=== PATIENT | female | born 1950 | race Caucasian/White ===

== ENCOUNTER 2017-11-26 11:55 | Inpatient (IN) ==
[2017-11-26] MEDS ORDERED: NS 1,000 ML IV ONE ×3 (12:09→20:18)
--- NOTE | 2017-11-26 12:11 | Emergency Department Report ---
General Adult HPI - General Chief complaint: Shortness of Breath/Dyspnea Stated complaint: SOA, dec O2 stat Time Seen by Provider: 11/26/17 12:09 Source: EMS Mode of arrival: EMS Limitations: altered mental status - History of Present Illness HPI narrative: She is brought in by EMS today from [facility] here in [place]. She was evaluated in ER overnight for low O2 and had negative workup. Was sent back to [place]. Today staff had noted the low O2 again and wanted to have her checked. Per EMS she also had a temp today but unsure how high. She is normally active but has been more subdued today. Does not wear home O2. Patient noted to be hypotensive on initial evaluation in ER. She is alert but does not talk or answer questions. She does follow commands. Onset (ago): hour(s) Severity: moderate Consistency: constant Exacerbating factors: none Associated symptoms: denies other symptoms Treatments prior to arrival: none - Related Data Home Medications Medication Instructions Recorded Confirmed Acetaminophen [Tylenol] 500 mg PO Q4H PRN 11/26/17 11/26/17 Alendronate [Fosamax] 70 mg PO Q7D 11/26/17 11/26/17 Amlodipine [Norvasc] 10 mg PO DAILY 11/26/17 11/26/17 Bisacodyl Supp [Dulcolax] 10 mg RECTALLY DAILY PRN 11/26/17 11/26/17 Calcium Carbonate [Calcium] 500 mg PO DAILY 11/26/17 11/26/17 ClonazePAM [Klonopin] 0.5 mg PO BID 11/26/17 11/26/17 Fleet Phospho-Soda Enema [Fleet 1 enema RECTALLY DAILY PRN 11/26/17 11/26/17 Enema] Haloperidol [Haldol] 5 mg PO Q4H PRN 11/26/17 11/26/17 Hydralazine [Apresoline] 12.5 mg PO TID 11/26/17 11/26/17 LORazepam [Ativan] 0.5 mg PO DAILY PRN 11/26/17 11/26/17 Lisinopril [Prinivil] 5 mg PO DAILY 11/26/17 11/26/17 Loratadine [Claritin] 10 mg PO DAILY PRN 11/26/17 11/26/17 Mag Hydrox/Aluminum Hyd/Simeth 30 ml PO Q4H PRN 11/26/17 11/26/17 [Antacid Suspension] Metoprolol Tartrate 50 mg PO BID 11/26/17 11/26/17 Milk of Magnesia [Mom] 30 ml PO DAILY PRN 11/26/17 11/26/17 Mirtazapine [Remeron] 15 mg PO HS 11/26/17 11/26/17 Multivitamin [One Daily] 1 each PO DAILY 11/26/17 11/26/17 Naproxen [Naproxen] 500 mg PO BID 11/26/17 11/26/17 Ondansetron [Zofran Odt] 4 mg PO Q8HR PRN 11/26/17 11/26/17 Phenytoin Cap [Dilantin 100 mg Cap] 100 mg PO TIDWM 11/26/17 11/26/17 Quetiapine [SEROquel] 200 mg PO TID 11/26/17 11/26/17 RisperiDONE LA [RisperDAL Consta] 50 mg IM Q2WKS 11/26/17 11/26/17 Sennosides [Senokot] 8.6 mg PO BID 11/26/17 11/26/17 Tramadol [Ultram] 50 mg PO TID 11/26/17 11/26/17 Allergies Allergy/AdvReac Type Severity Reaction Status Date / Time polystyrene sulfonate Allergy Unknown Verified 11/26/17 12:42 [From Kayexalate] tuberculin, purified protein Allergy Unknown Verified 11/26/17 12:42 deriva [From Tubersol] Review of Systems Limitations: ROS unobtainable due to patient's medical condition Constitutional: Reports: fever, weakness Physical Exam - Limitations Limitations: altered mental status - General General appearance: alert, in no apparent distress - Normal Exams: Neck:: Full range of motion, without adenopathy, JVD, bruits or thyromegaly Chest/Respirations:: Clear all lockwood, with good airflow, and symmetry bilaterally Cardiovascular:: Regular rate and rhythm, without murmur or gallop, Pulses 2+ all extremities, capillary refill, <2 seconds all extremities Abdomen:: Bowel sounds positive, soft, non-tender, non-distended, no hepatosplenomegaly, masses or bruits noted Lymphatic:: No lymphadenopathy, or lymphedema noted Integumentary:: No rashes, hives, or bruising noted Neurological:: Patient is alert Psychiatric:: Patient exhibits, appropriate attention, emotion and affect Course Vital Signs Temperature 100.5 F H 11/26/17 11:55 Pulse Rate 97 11/26/17 11:55 Respiratory Rate 18 11/26/17 11:55 Blood Pressure 86/54 11/26/17 11:55 Pulse Oximetry 90 11/26/17 11:55 Temperature 100.5 F H 11/26/17 11:55 Pulse Rate 97 11/26/17 11:55 Respiratory Rate 18 11/26/17 11:55 Blood Pressure 86/54 11/26/17 11:55 Pulse Oximetry 90 11/26/17 11:55 Medical Decision Making - MDM Narrative Medical decision making narrative: 1309- Chest xray does show bilateral lower lobe airspace consolidation. WBC is elevate. Lactate is normal however. B/P currently 78/51 with pulse of 91. IVF infusing with total bolus ordered for 30ml/kg dose of 1700ml. Did speak with Dr Nur regarding HPI, labs, xray, and vitals. Will accept for admission at this time. - Lab Data Lab results reviewed: Yes: I reviewed the patient's lab results. Result diagrams: 11/26/17 12:22 11/26/17 12:22 Lab Results 11/26/17 11/26/17 Range/Units 12:22 12:22 WBC 15.6 H (4.5-11.0) T/MM3 RBC 2.81 L (4.00-5.20) M/MM3 Hgb 9.1 L (12-16) GM/DL Hct 28.6 L (36-46) % MCV 101.8 H (80-100) UM3 MCH 32.4 (26-34) UUG MCHC 31.8 (31-37) GM/DL RDW Std Deviation 46.9 (36.9-50.2) FL Plt Count 228 (130-400) T/MM3 MPV 9.7 (9.4-12.4) UM3 Immature Gran % (Auto) Not performed Neut % (Auto) Not performed Lymph % (Auto) Not performed [place] % (Auto) Not performed Eos % (Auto) Not performed Baso % (Auto) Not performed Neut # (Auto) Not performed Lymph # (Auto) Not performed [place] # (Auto) Not performed Eos # (Auto) Not performed Baso # (Auto) Not performed Abs Immat Gran (auto) Not performed Neutrophils % (Manual) 88.0 H (33-66) % Band Neutrophils % 9.0 H (0-6) % Lymphocytes % (Manual) 2.0 L (23-45) % Monocytes % (Manual) 1.0 (0-9.0) % Neutrophils # (Manual) 13.7 H (1.8-7.7) T/MM3 Band Neutrophils # 1.4 T/MM3 Lymphocytes # (Manual) 0.3 L (1-4.8) T/MM3 Monocytes # (Manual) 0.2 (0-0.8) T/MM3 RBC Morph Comment Normal Turbidity < 20 (0-20) Sodium 142 (134-144) MEQ/L Potassium 5.3 H (3.6-5) MEQ/L Chloride 110 H (98-107) MEQ/L Carbon Dioxide 19 L (22-30) MEQ/L Anion Gap 13 (5-15) meq/L BUN 46.0 H (7-17) MG/DL Creatinine 3.5 H D (0.7-1.2) mg/dL GFR Calculation 13 BUN/Creatinine Ratio 13 (6-26) RATIO Glucose 92 (65-110) MG/DL Calculated Osmolality 285 H (261-280) MOSM/KG Calcium 9.8 (8.4-10.2) MG/DL Total Bilirubin 0.80 (0.20-1.30) MG/DL Icterus Index < 2 (0-7) AST 25 (14-36) U/L ALT 17 (1-35) U/L Alkaline Phosphatase 188 H (38-126) U/L Troponin I < 0.012 (0-0.12) ng/ml Total Protein 6.8 (6.3-8.2) g/dL Albumin 3.4 L (3.5-5.0) g/dL Globulin 3.4 (2.4-3.6) G/DL Albumin/Globulin Ratio 1.0 L (1.1-2.2) RATIO Plasma Lactate 1.0 (0.6-2.2) MMOL/L Specimen Hemolysis < 15 (0-25) - Radiology Data Radiology results reviewed: Yes: I reviewed the patient's radiology results. Date of Exam: 11/26/17 Ordering Provider: Arlene Patiño APRN Type of Exam(s): XR chest 1V Reason for Exam(s): fever, dyspnea Indication: fever, dyspnea PROCEDURE: XR chest 1V: Encounter: Initial Comparison: None Findings: Airspace consolidation in the lower lobes, right greater than left. No pneumothorax or significant pleural effusion. Heart size and mediastinal contours are within normal limits. Significant scoliotic curvature of the thoracolumbar spine. Impression: Lower lobe pneumonia or aspiration. . Critical Care Time Critical Care Time: Yes Total Critical Care Time: 30 Attestation: I have spent 30 minutes of time with this patient on coordination of care, monitoring labs and vital signs, and medications for life threatening illness. Disposition Clinical Impression: Pneumonia Qualifiers: Pneumonia type: due to unspecified organism Laterality: bilateral Lung location : lower lobe of lung Qualified Code(s): J18.1 - Lobar pneumonia, unspecified organism Hypotension Qualifiers: Hypotension type: other hypotension type Qualified Code(s): I95.89 - Other hypotension Disposition: 02 To [facility] [place] Care Condition: Stable Time of Disposition: 13:36 - Seen By: midlevel
[2017-11-26] MEDS ORDERED: SALINE FLUSH 10ml SYRINGE IVF PRN ×2 (12:17→13:05)
--- NOTE | 2017-11-26 12:50 | XRay Report ---
Indication: fever, dyspnea PROCEDURE: XR chest 1V: Encounter: Initial Comparison: None Findings: Airspace consolidation in the lower lobes, right greater than left. No pneumothorax or significant pleural effusion. Heart size and mediastinal contours are within normal limits. Significant scoliotic curvature of the thoracolumbar spine. Impression: Lower lobe pneumonia or aspiration. .
[2017-11-26] MEDS ORDERED: CEFEPIME 1 GM in NS 100 ML IV ONE (13:04)
[2017-11-26] MEDS ORDERED: LEVOFLOXACIN PB 750 MG/150 ML BAG IV ONE (13:05)
[2017-11-26] MEDS ORDERED: NS IV SCH (14:15)
[2017-11-26] MEDS ORDERED: NOREPINEPHRINE DRIP IV SCH (14:15)
[2017-11-26] MEDS: NOREPINEPHRINE DRIP IV SCH ×2 (14:30→22:29)
[2017-11-26] MEDS: NS IV SCH ×2 (14:30→22:29)
--- NOTE | 2017-11-26 15:03 | History & Physical Report ---
History of Present Illness Date: 11/26/17 Chief complaint: coughing, Hypotensive HPI: Hillary is a 67 yr old who resides at [facility] in [place]. She was seen early this morning in the ER during [facility] downtime and record is available at time of admission. It was reported at that time that andrew was hypotensive and hypoxic. ER physician reports room air sats were 93-94%, BP 130's systolic. She was evaluated and reported to be medically stable. She was discharged back yo [facility]. At 0530 outpatient labs done by PCP Dr Uri zepeda. At that time. White count was found to be elevated at 18.1, hemoglobin 8.8, neutrophils 86, with a percent bands. Potassium was found to be elevated, renal function also elevated. Given these findings. Patient was returned to the emergency room for another acute evaluation. Patient returns to the emergency room at approximately noon today. On arrival to [facility]. Patient was found to have a fever of 100.5, pulse rate 97, blood pressure low at 86/54. Patient was noted to be obtunded with altered mentation. Laboratory studies were repeated at this time. She was found to have continued leukocytosis with a white count of 15 him and I'm percent bands with 88% neutrophils. Chemistry panel was also repeated. A chest x-ray did reveal lower lobe pneumonia or aspiration. Patient was given cefepime, Levaquin IV. She was also given IV fluid bolus, 30 ML per kilo as per sepsis protocol. Despite fluid resuscitation. Patient continued to be hypotensive with systolic blood pressures in the 70s and 80s. At that time it was felt that patient required norepinephrine drip to maintain adequate blood pressure. Patient was seen while still in the emergency room for initial evaluation. She will briefly open her eyes however, is unresponsive and nonverbal. Was able to speak with patient's guardian, Jasmin Mcmullen. He does verify that patient is a full code. She is also able to verify patients baseline. She can normally ambulate with a walker. She does speak, however, is generally mumbled. She believes that she works for the [employer]. Outpatient laboratory study from 11/08/17 did reveal a right ear culture positive for Streptococcus pneumoniae. It is reported that patient was previously treated for this infection. Medical history, surgical history is very difficult to be obtained. Patient is unable to give any details. Nursing facility reports they have no records of past surgical history. Has never been hospitalized at [facility] previously. Review of Systems ROS unobtainable: due to mental status Past Medical History Medical History Updates: Organic brain syndrome. Schizoaffective disorder. Hypertension. Chronic kidney disease-baseline creatinine 2.0. Hx of hypercalcemia Surgical History: Unable to obtain Family History: Unable to Obtain - Social History Smoking status: Unknown if ever smoked Housing: [facility] ([facility] in [place], [place]) Social history: PCP Dr Grewal. Medications Home Medications Medication Instructions Recorded Confirmed Type Acetaminophen [Tylenol] 500 mg PO Q4H PRN 11/26/17 11/26/17 History Alendronate [Fosamax] 70 mg PO Q7D 11/26/17 11/26/17 History Amlodipine [Norvasc] 10 mg PO DAILY 11/26/17 11/26/17 History Bisacodyl Supp [Dulcolax] 10 mg RECTALLY DAILY PRN 11/26/17 11/26/17 History Calcium Carbonate [Calcium] 500 mg PO DAILY 11/26/17 11/26/17 History ClonazePAM [Klonopin] 0.5 mg PO BID 11/26/17 11/26/17 History Fleet Phospho-Soda Enema [Fleet 1 enema RECTALLY DAILY PRN 11/26/17 11/26/17 History Enema] Haloperidol [Haldol] 5 mg PO Q4H PRN 11/26/17 11/26/17 History Hydralazine [Apresoline] 12.5 mg PO TID 11/26/17 11/26/17 History LORazepam [Ativan] 0.5 mg PO DAILY PRN 11/26/17 11/26/17 History Lisinopril [Prinivil] 5 mg PO DAILY 11/26/17 11/26/17 History Loratadine [Claritin] 10 mg PO DAILY PRN 11/26/17 11/26/17 History Mag Hydrox/Aluminum Hyd/Simeth 30 ml PO Q4H PRN 11/26/17 11/26/17 History [Antacid Suspension] Metoprolol Tartrate 50 mg PO BID 11/26/17 11/26/17 History Milk of Magnesia [Mom] 30 ml PO DAILY PRN 11/26/17 11/26/17 History Mirtazapine [Remeron] 15 mg PO HS 11/26/17 11/26/17 History Multivitamin [One Daily] 1 each PO DAILY 11/26/17 11/26/17 History Naproxen [Naproxen] 500 mg PO BID 11/26/17 11/26/17 History Ondansetron [Zofran Odt] 4 mg PO Q8HR PRN 11/26/17 11/26/17 History Phenytoin Cap [Dilantin 100 mg Cap] 100 mg PO TIDWM 11/26/17 11/26/17 History Quetiapine [SEROquel] 200 mg PO TID 11/26/17 11/26/17 History RisperiDONE LA [RisperDAL Consta] 50 mg IM Q2WKS 11/26/17 11/26/17 History Sennosides [Senokot] 8.6 mg PO BID 11/26/17 11/26/17 History Tramadol [Ultram] 50 mg PO TID 11/26/17 11/26/17 History Allergies Allergy/AdvReac Type Severity Reaction Status Date / Time polystyrene sulfonate Allergy Unknown Verified 11/26/17 12:42 [From Kayexalate] tuberculin, purified protein Allergy Unknown Verified 11/26/17 12:42 deriva [From Tubersol] Exam Vital Signs: Temperature 100.5 F H 11/26/17 11:55 Pulse Rate 97 11/26/17 11:55 Respiratory Rate 18 11/26/17 11:55 Blood Pressure 86/54 11/26/17 11:55 Pulse Oximetry 90 11/26/17 11:55 - Constitutional Present: moderate distress, well nourished, well developed - Routine HEENT Exam Eye: Present: EOMI ENT: Present: mucous membranes moist, dentition normal - Routine Respiratory Exam Present: wheezes, crackles - Routine Cardiovascular Exam Present: RRR, S1, S2. Absent: murmur - Routine Abdominal Exam Present: soft, normoactive bowel sounds, non distended. Absent: tenderness - Routine Extremities Exam Present: no edema - Routine Back/Spine/Pelvis Exam Back/Spine: Present: full ROM - Routine Skin Exam Present: intact, dry, warm - Routine Neurological Exam Present: alert, CN II-XII intact, altered mental status - Routine Psychiatric Exam Present: unable to assess Results - Labs CBC & Chem 7: 11/26/17 12:22 11/26/17 12:22 Assessment and Plan (1) Septic shock Current visit: Yes Status: Acute Assessment and Plan: Impression Septic Shock- Leukocytosis, Fever, Hypotension despite IV fluid resuscitation. Currently requiring dopamine drip, MAP 61 Bilateral pneumonia Hypotension Acute respiratory failure with hypoxia- requiring 3 liters RUDOLPH- Grading Supervisor on admission 3.5, Baseline Grading Supervisor 2.0 (CKD) Hyperkalemia- POA Schizophrenia Organic brain syndrome Plan Patient is admitted as an inpatient under care of Dr. Nur to the ICU for septic shock secondary to bilateral pneumonia, leukocytosis. She was given IV fluid resuscitation. 30 mL/kilogram while in the emergency room. Unfortunately, she did continue to be hypotensive with a map less than 65. Patient was started on norepinephrine drip at 5mcg/min Continue normal saline at 250 ML per hour. Will need to monitor for evidence of fluid overload We will repeat venous lactate, and chemistry panel at 1630 as per sepsis protocol. Patient was given IV Levaquin and cefepime while in the emergency room. These medications will need to be renally dosed given acute renal injury. Will also add pharmacy consult for vancomycin for triple antibiotic coverage given severe sepsis. qSOFA score- 3/3 , revealing high risk of poor outcome secondary to sepsis Order placed for PICC line insertion for longer-term vascular access. Due to severity of illness. DuoNeb breathing treatments 4 times a day and Pulmicort twice a day. Continue with oxygen therapy to maintain adequate saturations. SCDs to bilateral lower extremity for DVT prophylaxis At admission oral home medications will be placed on hold given decreased level of alertness. Once mentation improves. Will likely need speech therapy consultation to evaluate safety of swallow. I did speak with patient's guardian, Jasmin Kemi. She does verify the patient's is a full code status. Will discuss further orders and plan of care with attending, Dr. Nur At time of discharge medical care will return to primary care provider, Uri DVT Prophylaxis: SCD's Resuscitation Status: Full Code - Time spent with patient Time with patient PN: 70 minutes - Physician Narrative Physician: Goldie Nur MD Narrative: Date: 11/26/17 Time: 1616 Pt critically ill. She was independently interviewed and examined by me. She is not communicating with me at all. She does mumble something but I cannot understand her. Unable to get a ROS from her. She cannot/will not tell me her medical history or surgical history. The DIRECTOR OF ENGINEERING did call various people involved in her life to get as much information about her as possible. I did exam her and do not see any surgical scars. Pt has a court appointed guardian, Jasmin Mcmullen. Pt is a full code. ROS not obtainable. PE: Temp 100.5, HR 96, RR 29, BP 77/40. Gen: alert and awake but non verbal Skin: warm and dry HEENT: NC/ AT PERRL, EOMI, Sclera, lids and conjunctiva wnl. Dry MM, OP clear. ? thrush on tongue Neck: supple. No JVD, Carotids 2+ without bruits. Lungs: coarse, right sided crackles and rhonchi, No wheezes CV: Regular. No murmur, rub or gallop Abd: soft, ND, +BS. MS: ZHONG, Good strength, No edema Neuro: No focal deficit noted. Psych: no able to assess, not aggitated, does not appear depressed. Impression/Plan 1. Septic Shock- Leukocytosis, Fever, Hypotension despite IV fluid resuscitation. -Currently requiring norepinephrine for BP support -Place PICC line 2. Bilateral pneumonia -On triple therapy for nosocomial pneumonia -Resp therapy 3. Hypotension -Due to #1 4. Acute respiratory failure with hypoxia -Due to #2 -requiring 3 liters -Resp therapy -Titrate oxygen as needed. -CPAP if needed 5. RUDOLPH on CKD - Grading Supervisor on admission 3.5, Baseline Grading Supervisor 2.0 -Repeat labs 6. Hyperkalemia -Likely due to sepsis, poor perfusion, dehydration 7. Schizophrenia 8. Organic brain syndrome 9. Prophylaxis -SCDs, PPI I have reviewed the pts notes, labs and imaging. Pt was discussed in detain with DIRECTOR OF ENGINEERING to develop an assessment and plan. Sepsis Assessment - Evaluation SIRS Criteria: pulse > 90 beats/minute, WBC > 12,000, RR > 20 Severe Sepsis: hypotension (SBP <90 or MAP <65 x2 readings), Creatinine >2.0 mg/ dL or 0.5 mg/dL above baseline Septic Shock: Map <65 after 30 mL/kg IVF bolus Hospital Course Summary Disclaimer: The visit summary below is not to be considered part of the above Progress Note. Hospital Course: Impression Septic Shock- Leukocytosis, Fever, Hypotension despite IV fluid resuscitation. Currently requiring dopamine drip, MAP 61 Bilateral pneumonia Hypotension Acute respiratory failure with hypoxia- requiring 3 liters RUDOLPH- Grading Supervisor on admission 3.5, Baseline Grading Supervisor 2.0 (CKD) Hyperkalemia- POA Schizophrenia Organic brain syndrome Plan Patient is admitted as an inpatient under care of Dr. Nur to the ICU for septic shock secondary to bilateral pneumonia, leukocytosis. She was given IV fluid resuscitation. 30 mL/kilogram while in the emergency room. Unfortunately, she did continue to be hypotensive with a map less than 65. Patient was started on norepinephrine drip at 5mcg/min Continue normal saline at 250 ML per hour. Will need to monitor for evidence of fluid overload We will repeat venous lactate, and chemistry panel at 1630 as per sepsis protocol. Patient was given IV Levaquin and cefepime while in the emergency room. These medications will need to be renally dosed given acute renal injury. Will also add pharmacy consult for vancomycin for triple antibiotic coverage given severe sepsis. qSOFA score- 3/3 , revealing high risk of poor outcome secondary to sepsis Order placed for PICC line insertion for longer-term vascular access. Due to severity of illness. DuoNeb breathing treatments 4 times a day and Pulmicort twice a day. Continue with oxygen therapy to maintain adequate saturations. SCDs to bilateral lower extremity for DVT prophylaxis At admission oral home medications will be placed on hold given decreased level of alertness. Once mentation improves. Will likely need speech therapy consultation to evaluate safety of swallow. I did speak with patient's guardian, Jasmin Mcmullen. She does verify the patient's is a full code status. Will discuss further orders and plan of care with attending, Dr. Nur At time of discharge medical care will return to primary care provider, Uri
[2017-11-26] MEDS ORDERED: VANCOMYCIN - PHARMACY CONSULT MC ONE (15:06)
[2017-11-26] MEDS: NS 1,000 ML IV SCH ×2 (15:17→21:27)
[2017-11-26 15:29] VITALS: BMI 23.5
--- NOTE | 2017-11-26 16:42 | XRay Report ---
Indication: PICC LINE PLACEMENT PROCEDURE: XR chest 1V: Encounter: Initial Comparison: November 26, 2017 at 12:30 Findings: Left PICC line in place with the tip projecting over the right atrium. Interval worsening in the dense consolidation in the right mid to lower lung field. No pneumothorax. Small left effusion. Heart size and mediastinal contours are stable. Impression: 1. New left PICC line tip projects over the right atrium. 2. Worsening airspace consolidation in the right lung. .
--- NOTE | 2017-11-26 16:44 | Pharmacy Consult-Antibiotics ---
Pharmacy Consult-Vancomycin - Laboratory Information WBC 15.6 T/MM3 (4.5-11.0) H 11/26/17 12:22 BUN 46.0 MG/DL (7-17) H 11/26/17 12:22 Creatinine 3.5 mg/dL (0.7-1.2) H D 11/26/17 12:22 - Consult Information Vancomycin protocol: 67 y.o. female admitted to CCU with hypoxia, hypotension, fever, and renal failure. Chest x-ray shows possible lower lobe pneumonia or aspiration. Cefepime , Levaquin and Vancomycin per pharmacy protocol was started for empiric coverage of sepsis. Vancomycin 750 mg IV x 1 dose then 11/27/17 @1600 start Vancomycin 750 mg IV Q48H. Due to renal failure, will obtain random Vancomycin level with am labs to be sure the vancomycin is being cleared. Pharmacy will monitor and adjust as needed. Thank you, Irene Holm [facility]
[2017-11-26] MEDS: ALBUTEROL/IPRATROPIUM 2.5mg-0.5mg/3ml NEB AEROSOL SCH ×2 (16:57→20:36)
[2017-11-26] MEDS: BUDESONIDE INH.SOLN 0.5mg/2ml NEB AEROSOL SCH (20:36)
[2017-11-26] MEDS ORDERED: NS 1,000 ML IV SCH (22:00)
[2017-11-27] MEDS: NS 1,000 ML IV SCH ×3 (00:37→07:00)
[2017-11-27] MEDS: NS IV SCH (03:30)
[2017-11-27] MEDS: NOREPINEPHRINE DRIP IV SCH (03:30)
[2017-11-27] MEDS: ALBUTEROL/IPRATROPIUM 2.5mg-0.5mg/3ml NEB AEROSOL SCH ×4 (07:36→20:05)
[2017-11-27] MEDS: BUDESONIDE INH.SOLN 0.5mg/2ml NEB AEROSOL SCH ×2 (07:36→20:05)
--- NOTE | 2017-11-27 08:46 | Pharmacy Consult-Antibiotics ---
Pharmacy Consult-Vancomycin - Laboratory Information WBC 15.2 T/MM3 (4.5-11.0) H 11/27/17 04:40 BUN 36.0 MG/DL (7-17) H 11/27/17 04:39 Creatinine 2.4 mg/dL (0.7-1.2) H D 11/27/17 04:39 Procalcitonin 4.19 NG/ML H* 11/27/17 04:40 VANCOMYCIN THERAPY: DAY 2 67 y.o. female admitted to CCU with hypoxia, hypotension, fever, and renal failure. Chest x-ray shows possible lower lobe pneumonia or aspiration. Cefepime, Levaquin and Vancomycin per pharmacy protocol was started for empiric coverage of sepsis. Impaired Renal Fx with yesterdays SCr = 3.5 Calculated CrCl = 13 Todays SCr = 2.4 Calculated CrCl = 19 Random Vancomycin Level was done at 0439 this am = 7.90 Will increase regimen to Vanco 1gm IV q36hrs, and start today at 1200 noon. Will watch renal fx closely, recheck PCT and adjust regimen as needed. Target vanco trough = 15-20 mcg/ml. Thank you
[2017-11-27] MEDS ORDERED: ONDANSETRON 4 MG/2 ML INJECTION IVP PRN (10:43)
[2017-11-27] MEDS ORDERED: FLEET PHOSPHO - SODA ENEMA 133ml PR PRN (11:31)
--- NOTE | 2017-11-27 11:43 | Progress Note ---
- Date 11/27/17 Subjective: F/U: Septic shock, pneumonia, Acute respiratory failure, RUDOLPH More awake and alert. Moving more. Attempting to communicate. BP showing improvement - weaned off Norepinephrine. Breathing shallow/rapid but unlabored. Saturations maintained on 8L. Creatine with decrease to 2.4. Objective Vital signs: Temperature 99.7 F 11/27/17 05:00 Pulse Rate 109 H 11/27/17 06:45 Respiratory Rate 44 H 11/27/17 07:36 Blood Pressure 136/61 11/27/17 06:45 Pulse Oximetry 95 11/27/17 07:36 Height/Weight/BMI: Height 1.57 m Weight 61.9 kg Body Mass Index 23.5 - Constitutional Present: mild distress, well nourished, well developed, average body habitus, other (Opens eyes, follows commands. Appears slightly restless. ) - Routine HEENT Exam Head: Present: normocephalic, atraumatic Eye: Present: EOMI, PERRL ENT: Present: mucous membranes dry (Thrush ) - Routine Respiratory Exam Present: decreased breath sounds, rhonchi - Routine Cardiovascular Exam Present: no murmur, tachycardia - Routine Abdominal Exam Present: soft, non distended, non tender. Absent: normoactive bowel sounds ( Decreased) - Routine Extremities Exam Present: no edema, pulses intact. Absent: cyanosis, clubbing Comments: SCD in place - Routine Skin Exam Present: dry, warm - Routine Neurological Exam Present: moving all extremities, vision grossly intact, hearing grossly intact - Routine Psychiatric Exam Present: cooperative. Absent: anxious, agitated Results - Labs CBC & Chem 7: 11/27/17 04:40 11/27/17 04:39 Assessment and Plan (1) Septic shock Current visit: Yes Status: Acute Assessment and Plan: Impression Septic Shock- Leukocytosis, Fever, Hypotension despite IV fluid resuscitation. 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 Casiano IVF to 1/2NS at 100cc/hr as serum sodium increased to 149. Monitor BP off norepinephrine - chronic antihypertensives on hold secondary to shock. Hold on oral intake until more awake and alert. Will need speech evaluation prior to initiation of oral intake. Continue DuoNeb breathing treatments 4 times a day and Pulmicort twice a day. Wean O2 as able, maintaining saturations above 90%. Recheck CMP, CBC, and magnesium along with procalcitonin in am due to septic shock. Case discussed with CCU nursing. Time spent with patient care greater than 25 minutes. DVT Prophylaxis: SCD's Resuscitation Status: Do Not Resuscitate - Time spent with patient Time with patient PN: 25 minutes - Physician Narrative Physician: Joesph Hayden MD Narrative: Date: 11/27/17 Time: 1140 Hospital Course Summary Disclaimer: The visit summary below is not to be considered part of the above Progress Note. Hospital Course: 11/26/17 Admit to CCU Patient is admitted as an inpatient under care of Dr. Nur to the ICU for septic shock secondary to bilateral pneumonia, leukocytosis. She was given IV fluid resuscitation. 30 mL/kilogram while in the emergency room. Unfortunately, she did continue to be hypotensive with a map less than 65. Patient was started on norepinephrine drip at 5mcg/min Continue normal saline at 250 ML per hour. Will need to monitor for evidence of fluid overload We will repeat venous lactate, and chemistry panel at 1630 as per sepsis protocol. Patient was given IV Levaquin and cefepime while in the emergency room. These medications will need to be renally dosed given acute renal injury. Will also add pharmacy consult for vancomycin for triple antibiotic coverage given severe sepsis. qSOFA score- 3/3 , revealing high risk of poor outcome secondary to sepsis Order placed for PICC line insertion for longer-term vascular access. Due to severity of illness. DuoNeb breathing treatments 4 times a day and Pulmicort twice a day. Continue with oxygen therapy to maintain adequate saturations. SCDs to bilateral lower extremity for DVT prophylaxis At admission oral home medications will be placed on hold given decreased level of alertness. Once mentation improves. Will likely need speech therapy consultation to evaluate safety of swallow. I did speak with patient's guardian, Jasmin Mcmullen. She does verify the patient's is a full code status. At time of discharge medical care will return to primary care provider, Ewgeo 11/27/17 More awake and alert. Moving more. Attempting to communicate. BP showing improvement - weaned off Norepinephrine. Breathing shallow/rapid but unlabored. Saturations maintained on 8L. Creatine with decrease to 2.4. Urine output increasing. Continue cefepime, levofloxacin, and vancomycin for antimicrobial coverage. Casiano IVF to 1/2NS at 100cc/hr as serum sodium increased to 149. Monitor BP off norepinephrine - chronic antihypertensives on hold secondary to shock. Hold on oral intake until more awake and alert. Will need speech evaluation prior to initiation of oral intake. Continue DuoNeb breathing treatments 4 times a day and Pulmicort twice a day. Wean O2 as able, maintaining saturations above 90%.
[2017-11-27] MEDS: ACETAMINOPHEN 650 MG SUPPOSITORY PR PRN ×2 (12:33→18:16)
[2017-11-27] MEDS: CEFEPIME 1 GM in NS 100 ML IV SCH (13:01)
[2017-11-27] MEDS: NYSTATIN 500,000 units/5 ml ORAL LIQUID PO SCH ×3 (13:52→23:13)
[2017-11-27] MEDS: 1/2 NS 1,000 ML IV SCH (16:13)
[2017-11-27] MEDS ORDERED: FALL RISK - PHARMACY CONSULT MC ONE (17:36)
[2017-11-28] MEDS: 1/2 NS 1,000 ML IV SCH (02:18)
[2017-11-28] MEDS: HALOPERIDOL 5 MG/ML INJECTION IVP PRN (03:31)
[2017-11-28] MEDS: ALBUTEROL/IPRATROPIUM 2.5mg-0.5mg/3ml NEB AEROSOL SCH ×4 (07:10→20:34)
[2017-11-28] MEDS: BUDESONIDE INH.SOLN 0.5mg/2ml NEB AEROSOL SCH ×2 (07:10→20:34)
[2017-11-28] MEDS: NYSTATIN 500,000 units/5 ml ORAL LIQUID PO SCH ×4 (09:25→21:35)
--- NOTE | 2017-11-28 10:03 | XRay Report ---
Indication: check picc placement PROCEDURE: XR chest post-procedure 1V: Encounter: Initial Comparison: November 26, 2017 Findings: Left PICC line in place with the tip projecting over the expected cavoatrial junction. Continued airspace disease in the right mid to lower lung field. No pneumothorax. Patient is rotated. Impression: Left PICC line tip projects over the expected cavoatrial junction. There is a preliminary report by virtual radi[employer]. .
--- NOTE | 2017-11-28 11:18 | Progress Note ---
- Date 11/28/17 Subjective: F/U: Septic shock, pneumonia, Acute respiratory failure, RUDOLPH Resting in bed. Opens eyes; feels thirsty-wants drink of water. Breathing shallow/rapid. Needing 7L to maintain saturations. Blood pressures in 150 to 160. WBC decreased to 12.4. Sodium increased to 149. Creatinine decreased 2.2. Objective Vital signs: Temperature 98.1 F 11/28/17 03:00 Pulse Rate 100 11/28/17 08:00 Respiratory Rate 40 H 11/28/17 07:11 Blood Pressure 163/83 H 11/28/17 06:00 Pulse Oximetry 91 11/28/17 07:11 Height/Weight/BMI: Height 1.57 m Weight 61.6 kg Body Mass Index 23.5 - Constitutional Present: moderate distress, well nourished, well developed, average body habitus - Routine HEENT Exam Head: Present: normocephalic, atraumatic Eye: Present: EOMI, PERRL ENT: Present: mucous membranes dry - Routine Respiratory Exam Present: decreased breath sounds, respiratory distress, wheezes (Faint/scattered ), diminished air movement - Routine Cardiovascular Exam Present: RRR, no murmur - Routine Abdominal Exam Present: soft, normoactive bowel sounds, non distended, non tender - Routine Extremities Exam Present: no edema, pulses intact. Absent: cyanosis, clubbing - Routine Musculoskeletal Exam Musculoskeletal: Present: no clubbing or cyanosis - Routine Skin Exam Present: dry, warm - Routine Neurological Exam Present: moving all extremities, vision grossly intact, hearing grossly intact - Routine Psychiatric Exam Absent: anxious, agitated Results - Labs CBC & Chem 7: 11/28/17 04:17 11/28/17 04:17 Assessment and Plan (1) Septic shock Current visit: Yes Status: Acute Assessment and Plan: Impression Septic Shock- Leukocytosis, Fever, Hypotension despite IV fluid resuscitation. 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 Casiano IVF to D5W at 50cc/hr as serum sodium still elevated at 149. BP elevated - will continue to hold chronic antihypertensives due to resolving shock. Hold on oral intake until more awake and alert. Speech consult to clear swallow prior to oral intake. Continue DuoNeb breathing treatments 4 times a day and Pulmicort twice a day. Wean O2 as able, maintaining saturations above 90%. Recheck BMP and CBC in am due to resolving septic shock. Recheck CXR in am to assess pneumonia. Will transfer to medical floor for continuation of care. Case discussed with CCU nursing. Time spent with patient care greater than 25 minutes. DVT Prophylaxis: SCD's Resuscitation Status: Do Not Resuscitate - Time spent with patient Time with patient PN: 25 minutes - Physician Narrative Physician: Joesph Hayden MD Narrative: Date: 11/28/17 Time: 1115 Hospital Course Summary Disclaimer: The visit summary below is not to be considered part of the above Progress Note. Hospital Course: 11/26/17 Admit to CCU Patient is admitted as an inpatient under care of Dr. Nur to the ICU for septic shock secondary to bilateral pneumonia, leukocytosis. She was given IV fluid resuscitation. 30 mL/kilogram while in the emergency room. Unfortunately, she did continue to be hypotensive with a map less than 65. Patient was started on norepinephrine drip at 5mcg/min. Continue normal saline at 250 ML per hour. Will need to monitor for evidence of fluid overload. We will repeat venous lactate, and chemistry panel at 1630 as per sepsis protocol. Patient was given IV Levaquin and cefepime while in the emergency room. These medications will need to be renally dosed given acute renal injury. Will also add pharmacy consult for vancomycin for triple antibiotic coverage given severe sepsis. qSOFA score- 3/3 , revealing high risk of poor outcome secondary to sepsis. Order placed for PICC line insertion for longer-term vascular access. Due to severity of illness. DuoNeb breathing treatments 4 times a day and Pulmicort twice a day. Continue with oxygen therapy to maintain adequate saturations. SCDs to bilateral lower extremity for DVT prophylaxis. At admission oral home medications will be placed on hold given decreased level of alertness. Once mentation improves. Will likely need speech therapy consultation to evaluate safety of swallow. I did speak with patient's guardian, Jasmin Mcmullen. She does verify the patient's is a full code status. At time of discharge medical care will return to primary care provider, Uri. 11/27/17 More awake and alert. Moving more. Attempting to communicate. BP showing improvement - weaned off Norepinephrine. Breathing shallow/rapid but unlabored. Saturations maintained on 8L. Creatine with decrease to 2.4. Urine output increasing. Continue cefepime, levofloxacin, and vancomycin for antimicrobial coverage. Casiano IVF to 1/2NS at 100cc/hr as serum sodium increased to 149. Monitor BP off norepinephrine - chronic antihypertensives on hold secondary to shock. Hold on oral intake until more awake and alert. Will need speech evaluation prior to initiation of oral intake. Continue DuoNeb breathing treatments 4 times a day and Pulmicort twice a day. Wean O2 as able, maintaining saturations above 90%. 11/28/17 Opens eyes; feels thirsty - wants drink of water. Breathing shallow/rapid. Needing 7L to maintain saturations. Blood pressures in 150 to 160. WBC decreased to 12.4. Sodium increased to 149. Creatinine decreased 2.2. Continue cefepime, levofloxacin, and vancomycin for antimicrobial coverage. Casiano IVF to D5W at 50cc/hr as serum sodium still elevated at 149. BP elevated - will continue to hold chronic antihypertensives due to resolving shock. Hold on oral intake until more awake and alert. Speech consult to clear swallow prior to oral intake. Continue DuoNeb breathing treatments 4 times a day and Pulmicort twice a day. Wean O2 as able, maintaining saturations above 90%. Will transfer to medical floor for continuation of care.
[2017-11-28] MEDS: D5W 1,000 ML IV SCH (12:53)
[2017-11-28] MEDS: CEFEPIME 1 GM in NS 100 ML IV SCH (12:53)
[2017-11-28] MEDS ORDERED: LEVOFLOXACIN PREMIX 250 MG/50 ML BAG IV SCH (13:00)
[2017-11-29] MEDS: HALOPERIDOL 5 MG/ML INJECTION IVP PRN (01:53)
[2017-11-29] MEDS: ACETAMINOPHEN 650 MG SUPPOSITORY PR PRN (03:18)
[2017-11-29] MEDS: SALINE FLUSH 10ml SYRINGE IV PRN (04:45)
[2017-11-29] MEDS: D5W 1,000 ML IV SCH ×3 (04:46→12:04)
[2017-11-29] MEDS: ALBUTEROL/IPRATROPIUM 2.5mg-0.5mg/3ml NEB AEROSOL SCH ×4 (08:25→21:07)
[2017-11-29] MEDS: BUDESONIDE INH.SOLN 0.5mg/2ml NEB AEROSOL SCH ×2 (08:25→21:07)
[2017-11-29] MEDS: 1/2 NS 1,000 ML IV SCH (10:10)
[2017-11-29] MEDS: NS 1,000 ML IV SCH (10:10)
[2017-11-29] MEDS ORDERED: HALOPERIDOL 5 MG TABLET PO PRN (10:43)
--- NOTE | 2017-11-29 10:52 | Pharmacy Consult-Antibiotics ---
Pharmacy Consult-Vancomycin - Laboratory Information WBC 10.8 T/MM3 (4.5-11.0) 11/29/17 04:04 BUN 37.0 MG/DL (7-17) H 11/29/17 04:04 Creatinine 2.1 mg/dL (0.7-1.2) H 11/29/17 08:41 Procalcitonin 2.57 NG/ML H* 11/29/17 08:41 - Consult Information VANCOMYCIN THERAPY: DAY 4 67 y.o. female admitted to CCU with hypoxia, hypotension, fever, and renal failure. Chest x-ray shows possible lower lobe pneumonia or aspiration. Cefepime, Levaquin and Vancomycin per pharmacy protocol was started for empiric coverage of sepsis. Impaired Renal Fx but improved with S Cr = 2.1 Calculated Cr Cl = 26 [place] [address] this am = 21.75 I increased the regimen to Vancomycin 1,250 mg IV q24hrs, and that will start @ 0001. The computer model show the Vancomycin trough would been around 13. I changed the dose and the frequency to obtain a trough of around 17.00. The renal clearance has improved. The pharmacy will watch renal fx closely, recheck PCT and adjust regimen as needed. Target vanco trough = 15-20 mcg/ml. Thank you
--- NOTE | 2017-11-29 11:05 | Progress Note ---
- Date 11/29/17 Subjective: F/U: Septic shock, pneumonia, Acute respiratory failure, RUDOLPH Sleeping in bed. Hard to rouse. BP in 160s. HR 95-110. Maintaining saturations on RA. Speech to work with patient today. Objective Vital signs: Temperature 97.5 F 11/29/17 07:34 Pulse Rate 101 H 11/29/17 08:00 Respiratory Rate 28 H 11/29/17 08:26 Blood Pressure 163/95 H 11/29/17 07:43 Pulse Oximetry 100 11/29/17 08:26 Height/Weight/BMI: Height 1.57 m Weight 60.4 kg Body Mass Index 23.5 - Constitutional Present: well nourished, well developed - Routine HEENT Exam Head: Present: normocephalic, atraumatic ENT: Present: mucous membranes dry - Routine Respiratory Exam Present: decreased breath sounds. Absent: respiratory distress - Routine Cardiovascular Exam Present: RRR, no murmur - Routine Abdominal Exam Present: soft, non distended, non tender - Routine Extremities Exam Present: no edema, pulses intact. 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 Increase IVF of D5W to 75cc/hr as serum sodium elevated at 154. BP elevated - will continue to hold chronic antihypertensives due to resolving shock. Speech consult to clear swallow and help improve oral intake. Will consult PT/OT to help improve functional status. Could restart Remeron, Dilantin, and Senna. Will hold Seroquel due to somnolence and lisinopril due to resolving RUDOLPH. Continue DuoNeb breathing treatments 4 times a day and Pulmicort twice a day. Monitor O2 levels off of oxygen. Recheck BMP and CBC in am due to resolving septic shock. Case discussed with CM. Time spent with patient care 25 minutes. DVT Prophylaxis: SCD's Resuscitation Status: Do Not Resuscitate - Time spent with patient Time with patient PN: 25 minutes - Physician Narrative Physician: Joesph Hayden MD Narrative: Date: 11/29/17 Time: 1101 Hospital Course Summary Disclaimer: The visit summary below is not to be considered part of the above Progress Note. Hospital Course: 11/26/17 Admit to CCU Patient is admitted as an inpatient under care of Dr. Nur to the ICU for septic shock secondary to bilateral pneumonia, leukocytosis. She was given IV fluid resuscitation. 30 mL/kilogram while in the emergency room. Unfortunately, she did continue to be hypotensive with a map less than 65. Patient was started on norepinephrine drip at 5mcg/min. Continue normal saline at 250 ML per hour. Will need to monitor for evidence of fluid overload. We will repeat venous lactate, and chemistry panel at 1630 as per sepsis protocol. Patient was given IV Levaquin and cefepime while in the emergency room. These medications will need to be renally dosed given acute renal injury. Will also add pharmacy consult for vancomycin for triple antibiotic coverage given severe sepsis. qSOFA score- 3/3 , revealing high risk of poor outcome secondary to sepsis. Order placed for PICC line insertion for longer-term vascular access. Due to severity of illness. DuoNeb breathing treatments 4 times a day and Pulmicort twice a day. Continue with oxygen therapy to maintain adequate saturations. SCDs to bilateral lower extremity for DVT prophylaxis. At admission oral home medications will be placed on hold given decreased level of alertness. Once mentation improves. Will likely need speech therapy consultation to evaluate safety of swallow. I did speak with patient's guardian, Jasmin Mcmullen. She does verify the patient's is a full code status. At time of discharge medical care will return to primary care provider, Uri. 11/27/17 More awake and alert. Moving more. Attempting to communicate. BP showing improvement - weaned off Norepinephrine. Breathing shallow/rapid but unlabored. Saturations maintained on 8L. Creatine with decrease to 2.4. Urine output increasing. Continue cefepime, levofloxacin, and vancomycin for antimicrobial coverage. Casiano IVF to 1/2NS at 100cc/hr as serum sodium increased to 149. Monitor BP off norepinephrine - chronic antihypertensives on hold secondary to shock. Hold on oral intake until more awake and alert. Will need speech evaluation prior to initiation of oral intake. Continue DuoNeb breathing treatments 4 times a day and Pulmicort twice a day. Wean O2 as able, maintaining saturations above 90%. 11/28/17 Opens eyes; feels thirsty - wants drink of water. Breathing shallow/rapid. Needing 7L to maintain saturations. Blood pressures in 150 to 160. WBC decreased to 12.4. Sodium increased to 149. Creatinine decreased 2.2. Continue cefepime, levofloxacin, and vancomycin for antimicrobial coverage. Change IVF to D5W at 50cc/hr as serum sodium still elevated at 149. BP elevated - will continue to hold chronic antihypertensives due to resolving shock. Hold on oral intake until more awake and alert. Speech consult to clear swallow prior to oral intake. Continue DuoNeb breathing treatments 4 times a day and Pulmicort twice a day. Wean O2 as able, maintaining saturations above 90%. Will transfer to medical floor for continuation of care. 11/29/17 With WBC improving can continue cefepime but can stop levofloxacin and vancomycin. Increase IVF of D5W to 75cc/hr as serum sodium elevated at 154. BP elevated - will continue to hold chronic antihypertensives due to resolving shock. Speech consult to clear swallow and help improve oral intake. Will consult PT/OT to help improve functional status. Could restart Remeron, Dilantin, and Senna. Will hold Seroquel due to somnolence and lisinopril due to resolving RUDOLPH.
[2017-11-29] MEDS: NYSTATIN 500,000 units/5 ml ORAL LIQUID PO SCH ×4 (11:26→20:05)
[2017-11-29] MEDS: CEFEPIME 1 GM in NS 100 ML IV SCH (12:01)
--- NOTE | 2017-11-29 12:03 | XRay Report ---
Indication: F/U: Infiltrate PROCEDURE: XR chest 1V: Encounter: Initial Comparison: 11/26/2017 Findings: Exam is slightly more expiratory than prior study. There is prominence of the interstitial markings primarily in the mid to lower lung lockwood which may be exacerbated by the expiratory technique. There is a left arm PICC line in place with its tip overlying the lower SVC, unchanged. There is prominence of the cardiac silhouette that is probably accentuated by the AP portable technique. No pneumothorax. Trachea is midline. No subdiaphragmatic free air. Impression: Mild diffuse interstitial edema and both lung lockwood versus prominent secondary to expiratory technique. No definite lobar consolidation or pleural effusion. .
[2017-11-29] MEDS: PHENYTOIN 100 MG CAPSULE PO SCH ×2 (16:24→17:23)
[2017-11-29] MEDS: SENNOSIDES 8.6 MG TABLET PO SCH (20:05)
[2017-11-29] MEDS: MIRTAZAPINE 15 MG TABLET PO SCH (20:05)
[2017-11-29] MEDS: ClonazePAM 0.5 MG TABLET PO SCH (20:05)
[2017-11-30] MEDS: SALINE FLUSH 10ml SYRINGE IV PRN ×3 (02:25→04:47)
[2017-11-30] MEDS: HALOPERIDOL 5 MG/ML INJECTION IVP PRN (04:22)
[2017-11-30] MEDS: D5W 1,000 ML IV SCH ×2 (04:47→20:07)
[2017-11-30] MEDS: ALBUTEROL/IPRATROPIUM 2.5mg-0.5mg/3ml NEB AEROSOL SCH ×4 (07:38→20:22)
[2017-11-30] MEDS: BUDESONIDE INH.SOLN 0.5mg/2ml NEB AEROSOL SCH ×2 (07:38→20:22)
[2017-11-30] MEDS: PHENYTOIN 100 MG CAPSULE PO SCH ×3 (08:28→17:55)
[2017-11-30] MEDS: ClonazePAM 0.5 MG TABLET PO SCH ×2 (08:28→21:43)
[2017-11-30] MEDS: SENNOSIDES 8.6 MG TABLET PO SCH ×2 (08:28→21:44)
[2017-11-30] MEDS: MULTI-VITAMIN + MINERAL TABLET PO SCH (08:28)
[2017-11-30] MEDS: NYSTATIN 500,000 units/5 ml ORAL LIQUID PO SCH ×4 (08:29→21:45)
--- NOTE | 2017-11-30 10:36 | Progress Note ---
- Date 11/30/17 Subjective: F/U: Septic shock, pneumonia, Acute respiratory failure, RUDOLPH Resting in bed. Will move head, but not verbal. Follows commands to squeeze my hands-strength in hands week. Maintaining saturations on RA. Speech recommending barium swallow. Objective Vital signs: Temperature 97.4 F 11/30/17 07:00 Pulse Rate 90 11/30/17 08:00 Respiratory Rate 25 H 11/30/17 07:38 Blood Pressure 172/93 H 11/30/17 07:00 Pulse Oximetry 91 11/30/17 07:38 Height/Weight/BMI: Height 1.57 m Weight 60.6 kg Body Mass Index 23.5 - Constitutional Present: well nourished, well developed, average body habitus, somnolent - Routine HEENT Exam Head: Present: normocephalic, atraumatic ENT: Present: mucous membranes dry - Routine Respiratory Exam Present: decreased breath sounds (Upper airway noises). Absent: respiratory distress - Routine Cardiovascular Exam Present: RRR, no murmur - Routine Abdominal Exam Present: soft, normoactive bowel sounds, non distended, non tender. Absent: guarding - Routine Extremities Exam Present: no edema, pulses intact. Absent: cyanosis, clubbing Comments: SCD in place - Routine Musculoskeletal Exam Musculoskeletal: Present: no clubbing or cyanosis - Routine Skin Exam Present: dry, warm - Routine Neurological Exam Somnolent. Encephalopathic. - Routine Psychiatric Exam Comments: Somnolent, encephalopathic. 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 WBC normalized at 8.5. Increase IVF of D5W to 100cc/hr; serum sodium with slight decrease to 152. Can restart metoprolol and amlodipine for BP - hold lisinopril due to resolving RUDOLPH. Speech recommending barium swallow testing. PT/OT to help improve functional status. Continue to hold Seroquel due to somnolence and lisinopril due to resolving RUDOLPH. Recheck CMP and CBC in am due to resolving septic shock. 1830 Rechecked on patient this evening - awake and alert, much more interactive. Speech mumbled. Continue with supportive care and treatment. Hope to make gains with swallow and functional status with improvement of encephalopathy. Case discussed with CM. Time spent with patient care 25 minutes. DVT Prophylaxis: SCD's Resuscitation Status: Do Not Resuscitate - Time spent with patient Time with patient PN: 25 minutes - Physician Narrative Physician: Joesph Hayden MD Narrative: Date: 11/30/17 Time: 1033 Hospital Course Summary Disclaimer: The visit summary below is not to be considered part of the above Progress Note. Hospital Course: 11/26/17 Admit to CCU Patient is admitted as an inpatient under care of Dr. Nur to the ICU for septic shock secondary to bilateral pneumonia, leukocytosis. She was given IV fluid resuscitation. 30 mL/kilogram while in the emergency room. Unfortunately, she did continue to be hypotensive with a map less than 65. Patient was started on norepinephrine drip at 5mcg/min. Continue normal saline at 250 ML per hour. Will need to monitor for evidence of fluid overload. We will repeat venous lactate, and chemistry panel at 1630 as per sepsis protocol. Patient was given IV Levaquin and cefepime while in the emergency room. These medications will need to be renally dosed given acute renal injury. Will also add pharmacy consult for vancomycin for triple antibiotic coverage given severe sepsis. qSOFA score- 3/3 , revealing high risk of poor outcome secondary to sepsis. Order placed for PICC line insertion for longer-term vascular access. Due to severity of illness. DuoNeb breathing treatments 4 times a day and Pulmicort twice a day. Continue with oxygen therapy to maintain adequate saturations. SCDs to bilateral lower extremity for DVT prophylaxis. At admission oral home medications will be placed on hold given decreased level of alertness. Once mentation improves. Will likely need speech therapy consultation to evaluate safety of swallow. I did speak with patient's guardian, Jasmin Mcmullen. She does verify the patient's is a full code status. At time of discharge medical care will return to primary care provider, Uri. 11/27/17 More awake and alert. Moving more. Attempting to communicate. BP showing improvement - weaned off Norepinephrine. Breathing shallow/rapid but unlabored. Saturations maintained on 8L. Creatine with decrease to 2.4. Urine output increasing. Continue cefepime, levofloxacin, and vancomycin for antimicrobial coverage. Casiano IVF to 1/2NS at 100cc/hr as serum sodium increased to 149. Monitor BP off norepinephrine - chronic antihypertensives on hold secondary to shock. Hold on oral intake until more awake and alert. Will need speech evaluation prior to initiation of oral intake. Continue DuoNeb breathing treatments 4 times a day and Pulmicort twice a day. Wean O2 as able, maintaining saturations above 90%. 11/28/17 Opens eyes; feels thirsty - wants drink of water. Breathing shallow/rapid. Needing 7L to maintain saturations. Blood pressures in 150 to 160. WBC decreased to 12.4. Sodium increased to 149. Creatinine decreased 2.2. Continue cefepime, levofloxacin, and vancomycin for antimicrobial coverage. Change IVF to D5W at 50cc/hr as serum sodium still elevated at 149. BP elevated - will continue to hold chronic antihypertensives due to resolving shock. Hold on oral intake until more awake and alert. Speech consult to clear swallow prior to oral intake. Continue DuoNeb breathing treatments 4 times a day and Pulmicort twice a day. Wean O2 as able, maintaining saturations above 90%. Will transfer to medical floor for continuation of care. 11/29/17 With WBC improving can continue cefepime but can stop levofloxacin and vancomycin. Increase IVF of D5W to 75cc/hr as serum sodium elevated at 154. BP elevated - will continue to hold chronic antihypertensives due to resolving shock. Speech consult to clear swallow and help improve oral intake. Will consult PT/OT to help improve functional status. Could restart Remeron, Dilantin, and Senna. Will hold Seroquel due to somnolence and lisinopril due to resolving RUDOLPH. 11/30/17 Continue cefepime for antimicrobial coverage. WBC normalized at 8.5. Increase IVF of D5W to 100cc/hr; serum sodium with slight decrease to 152. Can restart metoprolol and amlodipine for BP - hold lisinopril due to resolving RUDOLPH. Speech recommending barium swallow testing. PT/OT to help improve functional status. Continue to hold Seroquel due to somnolence and lisinopril due to resolving RUDOLPH.
[2017-11-30] MEDS: CEFEPIME 1 GM in NS 100 ML IV SCH (13:16)
--- NOTE | 2017-11-30 16:10 | Fluoroscopy Report ---
Indication:Difficulty swallowing Procedure:FL barium swallow modified MODIFIED BAR. SWALLOW STUDY: Videofluoroscopy was performed in conjunction with a sales representatives from speech pathology and a separate report and recommendations will be provided. Thin, honey, and pudding consistencies of barium were administered. There was no aspiration noted with any of the consistencies. Due to the patient's limited mobility, no AP imaging was obtained. Impression: No aspiration seen. Please see the speech pathology report for additional details and recommendations. Fluoroscopy dose: 807.40 mrad Oleksandr Rizvi RPA/ALEJANDRO performed this under my direct supervision. .
[2017-11-30] MEDS ORDERED: AMLODIPINE 5 MG TABLET PO ONE (16:53)
[2017-11-30] MEDS: MIRTAZAPINE 15 MG TABLET PO SCH (21:44)
[2017-12-01] MEDS: BUDESONIDE INH.SOLN 0.5mg/2ml NEB AEROSOL SCH ×2 (07:19→19:07)
[2017-12-01] MEDS: ALBUTEROL/IPRATROPIUM 2.5mg-0.5mg/3ml NEB AEROSOL SCH ×4 (07:19→19:07)
[2017-12-01] MEDS: MULTI-VITAMIN + MINERAL TABLET PO SCH (09:44)
[2017-12-01] MEDS: AMLODIPINE 10 MG TABLET PO SCH (09:44)
[2017-12-01] MEDS: ClonazePAM 0.5 MG TABLET PO SCH ×2 (09:45→20:47)
[2017-12-01] MEDS: SENNOSIDES 8.6 MG TABLET PO SCH ×2 (09:45→20:47)
[2017-12-01] MEDS: PHENYTOIN 100 MG CAPSULE PO SCH ×3 (09:45→18:21)
[2017-12-01] MEDS: D5W 1,000 ML IV SCH ×3 (09:49→20:46)
[2017-12-01] MEDS: NYSTATIN 500,000 units/5 ml ORAL LIQUID PO SCH ×4 (09:50→20:47)
[2017-12-01] MEDS ORDERED: HALOPERIDOL 5 MG/ML INJECTION IVP PRN (11:51)
--- NOTE | 2017-12-01 12:01 | Progress Note ---
- Date 12/01/17 Subjective: F/U: Severe sepsis, pneumonia, Acute respiratory failure, RUDOLPH Sitting up in bed-looking over [facility] booklet. Smiles, but not verbally interactive. Follows commands intermittently. Oral drive variable-can swallow when alert enough. Breathing comfortably. Renal status to baseline. WBC normalized. Objective Vital signs: Temperature 98.8 F 12/01/17 11:32 Pulse Rate 87 12/01/17 11:32 Respiratory Rate 16 12/01/17 11:32 Blood Pressure 170/85 H 12/01/17 11:32 Pulse Oximetry 93 12/01/17 11:32 Height/Weight/BMI: Height 1.57 m Weight 57.3 kg Body Mass Index 23.5 - Constitutional Present: well nourished, well developed, average body habitus - Routine HEENT Exam Head: Present: normocephalic, atraumatic Eye: Present: EOMI, PERRL - Routine Respiratory Exam Present: decreased breath sounds. Absent: rales, respiratory distress, rhonchi - Routine Cardiovascular Exam Present: RRR, no murmur - Routine Abdominal Exam Present: soft, normoactive bowel sounds, non distended, non tender. Absent: guarding - Routine Extremities Exam Present: pulses intact. Absent: cyanosis, clubbing - Routine Musculoskeletal Exam Musculoskeletal: Present: no clubbing or cyanosis - Routine Skin Exam Present: dry, warm - Routine Neurological Exam Present: alert, moving all extremities, vision grossly intact, hearing grossly intact - Routine Psychiatric Exam Comments: Awake, smiles; non verbal. Follows commands intermittently. Results - Labs CBC & Chem 7: 12/01/17 04:53 12/01/17 04:53 Assessment and Plan (1) Severe sepsis Current visit: Yes Status: Acute (2) Pneumonia Current visit: Yes Status: Acute Assessment and Plan: Impression Severe sepsis - improved No Septic shock -- elevated lactate at presentation incorrect as run on blood form field that had set and not stored properly Bilateral pneumonia Hypotension - resolved Acute respiratory failure with hypoxia - improved RUDOLPH (POA) - resolved Encephalopathy Thrush Stage IV CKD Hyperkalemia- POA Hypernatremia (Not POA) Schizophrenia Organic brain syndrome Plan Continue cefepime for antimicrobial coverage. WBC normalized at 8.5. Continue IVF of D5W to 100cc/hr to help with serum sodium and to maintain hydration as oral drive variable. Restart hydralazine as BP with elevation. Continue with PT/OT/Speech to improve functional status. Continue to hold Seroquel due to somnolence and lisinopril due to resolving RUDOLPH. Recheck CMP and CBC in am due to resolving sepsis. Case discussed with CM. Time spent with patient care 25 minutes. - Physician Narrative Narrative: Date: 12/01/17 Time: 1158 Hospital Course Summary Disclaimer: The visit summary below is not to be considered part of the above Progress Note. Hospital Course: 11/26/17 Admit to CCU Patient is admitted as an inpatient under care of Dr. Nur to the ICU for septic shock secondary to bilateral pneumonia, leukocytosis. She was given IV fluid resuscitation. 30 mL/kilogram while in the emergency room. Unfortunately, she did continue to be hypotensive with a map less than 65. Patient was started on norepinephrine drip at 5mcg/min. Continue normal saline at 250 ML per hour. Will need to monitor for evidence of fluid overload. We will repeat venous lactate, and chemistry panel at 1630 as per sepsis protocol. Patient was given IV Levaquin and cefepime while in the emergency room. These medications will need to be renally dosed given acute renal injury. Will also add pharmacy consult for vancomycin for triple antibiotic coverage given severe sepsis. qSOFA score- 3/3 , revealing high risk of poor outcome secondary to sepsis. Order placed for PICC line insertion for longer-term vascular access. Due to severity of illness. DuoNeb breathing treatments 4 times a day and Pulmicort twice a day. Continue with oxygen therapy to maintain adequate saturations. SCDs to bilateral lower extremity for DVT prophylaxis. At admission oral home medications will be placed on hold given decreased level of alertness. Once mentation improves. Will likely need speech therapy consultation to evaluate safety of swallow. I did speak with patient's guardian, Jasmin Mcmullen. She does verify the patient's is a full code status. At time of discharge medical care will return to primary care provider, Uri. 11/27/17 More awake and alert. Moving more. Attempting to communicate. BP showing improvement - weaned off Norepinephrine. Breathing shallow/rapid but unlabored. Saturations maintained on 8L. Creatine with decrease to 2.4. Urine output increasing. Continue cefepime, levofloxacin, and vancomycin for antimicrobial coverage. Casiano IVF to 1/2NS at 100cc/hr as serum sodium increased to 149. Monitor BP off norepinephrine - chronic antihypertensives on hold secondary to sepsis. Hold on oral intake until more awake and alert. Will need speech evaluation prior to initiation of oral intake. Continue DuoNeb breathing treatments 4 times a day and Pulmicort twice a day. Wean O2 as able, maintaining saturations above 90%. 11/28/17 Opens eyes; feels thirsty - wants drink of water. Breathing shallow/rapid. Needing 7L to maintain saturations. Blood pressures in 150 to 160. WBC decreased to 12.4. Sodium increased to 149. Creatinine decreased 2.2. Continue cefepime, levofloxacin, and vancomycin for antimicrobial coverage. Change IVF to D5W at 50cc/hr as serum sodium still elevated at 149. BP elevated - will continue to hold chronic antihypertensives due to resolving sepsis/RUDOLPH. Hold on oral intake until more awake and alert. Speech consult to clear swallow prior to oral intake. Continue DuoNeb breathing treatments 4 times a day and Pulmicort twice a day. Wean O2 as able, maintaining saturations above 90%. Will transfer to medical floor for continuation of care. 11/29/17 With WBC improving can continue cefepime but can stop levofloxacin and vancomycin. Increase IVF of D5W to 75cc/hr as serum sodium elevated at 154. BP elevated - will continue to hold chronic antihypertensives due to resolving sepsis. Speech consult to clear swallow and help improve oral intake. Will consult PT/OT to help improve functional status. Could restart Remeron, Dilantin, and Senna. Will hold Seroquel due to somnolence and lisinopril due to resolving RUDOLPH. 11/30/17 Continue cefepime for antimicrobial coverage. WBC normalized at 8.5. Increase IVF of D5W to 100cc/hr; serum sodium with slight decrease to 152. Can restart metoprolol and amlodipine for BP - hold lisinopril due to resolving RUDOLPH. Speech recommending barium swallow testing. PT/OT to help improve functional status. Continue to hold Seroquel due to somnolence and lisinopril due to resolving RUDOLPH. 12/01/17 More awake and alert, but follow commands intermittently and oral drive decreased/variable. Seroquel remains on hold (not restarted). Continue cefepime for antimicrobial coverage. WBC normalized at 8.5. Continue IVF of D5W to 100cc/hr to help with serum sodium and to maintain hydration as oral drive variable. Restart hydralazine as BP with elevation. Renal status stable. Lisinopril not restarted due to resolving RUDOLPH. Continue with PT/OT/Speech to improve functional status. Continue to hold Seroquel due to somnolence and lisinopril due to resolving RUDOLPH.
[2017-12-01] MEDS: CEFEPIME 1 GM in NS 100 ML IV SCH (12:12)
[2017-12-01] MEDS ORDERED: FALL RISK - PHARMACY CONSULT MC ONE (17:22)
[2017-12-01] MEDS: HYDRALAZINE 25 MG TABLET PO SCH ×2 (18:20→20:47)
[2017-12-01] MEDS: MIRTAZAPINE 15 MG TABLET PO SCH (20:47)
[2017-12-02] MEDS: D5W 1,000 ML IV SCH ×3 (07:35→19:09)
[2017-12-02] MEDS: MULTI-VITAMIN + MINERAL TABLET PO SCH (08:13)
[2017-12-02] MEDS: ClonazePAM 0.5 MG TABLET PO SCH ×2 (08:13→21:45)
[2017-12-02] MEDS: AMLODIPINE 10 MG TABLET PO SCH (08:13)
[2017-12-02] MEDS: PHENYTOIN 100 MG CAPSULE PO SCH ×3 (08:13→19:09)
[2017-12-02] MEDS: SENNOSIDES 8.6 MG TABLET PO SCH ×2 (08:13→21:46)
[2017-12-02] MEDS: HYDRALAZINE 25 MG TABLET PO SCH ×3 (08:13→21:46)
[2017-12-02] MEDS: NYSTATIN 500,000 units/5 ml ORAL LIQUID PO SCH ×4 (08:14→21:46)
[2017-12-02] MEDS: ALBUTEROL/IPRATROPIUM 2.5mg-0.5mg/3ml NEB AEROSOL SCH ×4 (09:06→20:20)
[2017-12-02] MEDS: BUDESONIDE INH.SOLN 0.5mg/2ml NEB AEROSOL SCH ×2 (09:06→20:20)
--- NOTE | 2017-12-02 09:28 | Progress Note ---
- Date 12/02/17 Subjective: Hillary is seen today in follow up after her bath. She is sleeping and staff reports she is worn out from bathing. She is comfortable breathing on room air without distress. Nursing staff report overall she has been more alert and will answer questions verbally. She is able to be up with 1 assistance only. Tolerated some PO pudding and will be seen again today by speech. Objective Vital signs: Temperature 98.0 F 12/02/17 04:00 Pulse Rate 85 12/02/17 04:00 Respiratory Rate 20 12/02/17 09:07 Blood Pressure 138/79 12/02/17 04:00 Pulse Oximetry 90 12/02/17 09:07 Height/Weight/BMI: Height 1.57 m Weight 57.3 kg Body Mass Index 23.5 - Constitutional Present: no acute distress, well nourished, well developed - Routine HEENT Exam ENT: Present: mucous membranes moist - Routine Respiratory Exam Present: CTA bilaterally. Absent: wheezes - Routine Cardiovascular Exam Present: RRR, S1, S2. Absent: murmur - Routine Abdominal Exam Present: soft, normoactive bowel sounds, non distended. Absent: tenderness - Routine Skin Exam Present: intact, dry, warm - Routine Neurological Exam Present: altered mental status - Routine Lymphatic Exam Lymphatic: Absent: adenopathy - Routine Psychiatric Exam Present: cooperative, unable to assess Results - Labs CBC & Chem 7: 12/03/17 04:29 12/03/17 04:29 Assessment and Plan (1) Pneumonia Current visit: Yes Status: Acute (2) Severe sepsis Current visit: Yes Status: Acute Assessment and Plan: Impression Severe sepsis - improved No Septic shock -- elevated lactate at presentation incorrect as run on blood form field that had set and not stored properly Bilateral pneumonia Hypotension - resolved Acute respiratory failure with hypoxia - improved RUDOLPH (POA) - resolved Encephalopathy Thrush Stage IV CKD Hyperkalemia- POA Hypernatremia (Not POA) Schizophrenia Organic brain syndrome 12/02 Today is day #6 of cefepime for antimicrobial coverage. Hypernatremia is slowly improving on D5W IV fluids. Continue to work with speech regarding swallow. Did tolerate PO pudding with nursing staff Optical Dispenser is improving- Lisinopril remains on hold given RUDOLPH Encourage work with PT/OT for strengthening. Prior to hospitalization he was ambulating independently Recheck CMP and CBC to follow blood counts, renal function and electrolytes - Physician Narrative Physician: Goldie Nur MD Narrative: Date: 12/02/17 Time: 1827 Pt independently interviewed and examined by me. SHe is in the chair. She was sleeping when I walked in. She did awaken easily. She is on room air. She did not speak with me. PE: Gen: alert. NAD Skin: warm and dry HEENT: NC/AT PERRL, EOMI, Sclera, lids and conjunctiva wnl, MMM, OP clear Neck: supple. No JVD, Carotids 2+ without bruits. Lungs: diminshed, clear, No rales, rhonchi, wheezes. CV: regular. No murmur, rub or gallop Abd: soft. NT/ND, +BS MS: No edema. Good strength and ROM. Neuro: Difficult to test Psy: cooperative and pleasant. A/P: Impression Severe sepsis - improved No Septic shock -- elevated lactate at presentation incorrect as run on blood from field that had set and not stored properly Bilateral pneumonia -Resolved. Pt on RA Hypotension - resolved Acute respiratory failure with hypoxia - improved RUDOLPH (POA) - resolved Encephalopathy Thrush Stage IV CKD Hyperkalemia- POA Hypernatremia (Not POA) -Improving on D5W Schizophrenia Organic brain syndrome I have independently examined and interviewed the patient. I have reviewed her labs, notes and imaging. Impression and plan was reviewed with the nurse practitioner and agree with as stated above. 12/02 Today is day #6 of cefepime for antimicrobial coverage. Hypernatremia is slowly improving on D5W IV fluids. Continue to work with speech regarding swallow. Did tolerate PO pudding with nursing staff Optical Dispenser is improving- Lisinopril remains on hold given RUDOLPH Encourage work with PT/OT for strengthening. Prior to hospitalization he was ambulating independently Recheck CMP and CBC to follow blood counts, renal function and electrolytes I have reviewed the patient's imaging, labs and notes. Patient was discussed with nurse practitioner. I have independently interviewed and examined the patient. I agree with the above assessment and plan. Hospital Course Summary Disclaimer: The visit summary below is not to be considered part of the above Progress Note. Hospital Course: 11/26/17 Admit to CCU Patient is admitted as an inpatient under care of Dr. Nur to the ICU for septic shock secondary to bilateral pneumonia, leukocytosis. She was given IV fluid resuscitation. 30 mL/kilogram while in the emergency room. Unfortunately, she did continue to be hypotensive with a map less than 65. Patient was started on norepinephrine drip at 5mcg/min. Continue normal saline at 250 ML per hour. Will need to monitor for evidence of fluid overload. We will repeat venous lactate, and chemistry panel at 1630 as per sepsis protocol. Patient was given IV Levaquin and cefepime while in the emergency room. These medications will need to be renally dosed given acute renal injury. Will also add pharmacy consult for vancomycin for triple antibiotic coverage given severe sepsis. qSOFA score- 3/3 , revealing high risk of poor outcome secondary to sepsis. Order placed for PICC line insertion for longer-term vascular access. Due to severity of illness. DuoNeb breathing treatments 4 times a day and Pulmicort twice a day. Continue with oxygen therapy to maintain adequate saturations. SCDs to bilateral lower extremity for DVT prophylaxis. At admission oral home medications will be placed on hold given decreased level of alertness. Once mentation improves. Will likely need speech therapy consultation to evaluate safety of swallow. I did speak with patient's guardian, Jasmin Mcmullen. She does verify the patient's is a full code status. At time of discharge medical care will return to primary care provider, Uri. 11/27/17 More awake and alert. Moving more. Attempting to communicate. BP showing improvement - weaned off Norepinephrine. Breathing shallow/rapid but unlabored. Saturations maintained on 8L. Creatine with decrease to 2.4. Urine output increasing. Continue cefepime, levofloxacin, and vancomycin for antimicrobial coverage. Casiano IVF to 1/2NS at 100cc/hr as serum sodium increased to 149. Monitor BP off norepinephrine - chronic antihypertensives on hold secondary to sepsis. Hold on oral intake until more awake and alert. Will need speech evaluation prior to initiation of oral intake. Continue DuoNeb breathing treatments 4 times a day and Pulmicort twice a day. Wean O2 as able, maintaining saturations above 90%. 11/28/17 Opens eyes; feels thirsty - wants drink of water. Breathing shallow/rapid. Needing 7L to maintain saturations. Blood pressures in 150 to 160. WBC decreased to 12.4. Sodium increased to 149. Creatinine decreased 2.2. Continue cefepime, levofloxacin, and vancomycin for antimicrobial coverage. Change IVF to D5W at 50cc/hr as serum sodium still elevated at 149. BP elevated - will continue to hold chronic antihypertensives due to resolving sepsis/RUDOLPH. Hold on oral intake until more awake and alert. Speech consult to clear swallow prior to oral intake. Continue DuoNeb breathing treatments 4 times a day and Pulmicort twice a day. Wean O2 as able, maintaining saturations above 90%. Will transfer to medical floor for continuation of care. 11/29/17 With WBC improving can continue cefepime but can stop levofloxacin and vancomycin. Increase IVF of D5W to 75cc/hr as serum sodium elevated at 154. BP elevated - will continue to hold chronic antihypertensives due to resolving sepsis. Speech consult to clear swallow and help improve oral intake. Will consult PT/OT to help improve functional status. Could restart Remeron, Dilantin, and Senna. Will hold Seroquel due to somnolence and lisinopril due to resolving RUDOLPH. 11/30/17 Continue cefepime for antimicrobial coverage. WBC normalized at 8.5. Increase IVF of D5W to 100cc/hr; serum sodium with slight decrease to 152. Can restart metoprolol and amlodipine for BP - hold lisinopril due to resolving RUDOLPH. Speech recommending barium swallow testing. PT/OT to help improve functional status. Continue to hold Seroquel due to somnolence and lisinopril due to resolving RUDOLPH. 12/01/17 More awake and alert, but follow commands intermittently and oral drive decreased/variable. Seroquel remains on hold (not restarted). Continue cefepime for antimicrobial coverage. WBC normalized at 8.5. Continue IVF of D5W to 100cc/hr to help with serum sodium and to maintain hydration as oral drive variable. Restart hydralazine as BP with elevation. Renal status stable. Lisinopril not restarted due to resolving RUDOLPH. Continue with PT/OT/Speech to improve functional status. Continue to hold Seroquel due to somnolence and lisinopril due to resolving RUDOLPH. 12/02/17 Today is day #6 of cefepime for antimicrobial coverage. Hypernatremia is slowly improving on D5W IV fluids. Continue to work with speech regarding swallow. Did tolerate PO pudding with nursing staff Optical Dispenser is improving- Lisinopril remains on hold given RUDOLPH Encourage work with PT/OT for strengthening. Prior to hospitalization he was ambulating independently Recheck CMP and CBC to follow blood counts, renal function and electrolytes
[2017-12-02] MEDS: CEFEPIME 1 GM in NS 100 ML IV SCH (16:00)
[2017-12-02] MEDS: MIRTAZAPINE 15 MG TABLET PO SCH (21:45)
[2017-12-03] MEDS: D5W 1,000 ML IV SCH ×2 (06:31→16:41)
[2017-12-03] MEDS: BUDESONIDE INH.SOLN 0.5mg/2ml NEB AEROSOL SCH ×2 (08:10→19:32)
[2017-12-03] MEDS: ALBUTEROL/IPRATROPIUM 2.5mg-0.5mg/3ml NEB AEROSOL SCH ×4 (08:10→19:32)
[2017-12-03] MEDS: SENNOSIDES 8.6 MG TABLET PO SCH ×2 (09:48→20:06)
[2017-12-03] MEDS: ClonazePAM 0.5 MG TABLET PO SCH ×2 (09:48→20:06)
[2017-12-03] MEDS: MULTI-VITAMIN + MINERAL TABLET PO SCH (09:48)
[2017-12-03] MEDS: AMLODIPINE 10 MG TABLET PO SCH (09:48)
[2017-12-03] MEDS: PHENYTOIN 100 MG CAPSULE PO SCH ×4 (09:49→16:44)
[2017-12-03] MEDS: NYSTATIN 500,000 units/5 ml ORAL LIQUID PO SCH ×4 (09:49→20:06)
[2017-12-03] MEDS: HYDRALAZINE 25 MG TABLET PO SCH ×3 (09:49→20:06)
[2017-12-03] MEDS: CEFEPIME 1 GM in NS 100 ML IV SCH (12:53)
--- NOTE | 2017-12-03 15:46 | Progress Note ---
- Date 12/03/17 Subjective: Hillary is seen and examined today. She is much more alert and talkative She asks "what is your name". She denies having pain or feeling short of breath. She wants to look at my name badge and shake my hand. Resp Therapist report that they suctioned a significant amount of phlegm from patient's throat. Appetite appears to be going well. No bowel movement since 11/27. Objective Vital signs: Temperature 97.9 F 12/03/17 15: Pulse Rate 91 12/03/17 15:18 Respiratory Rate 18 12/03/17 15:18 Blood Pressure 145/80 H 12/03/17 15:18 Pulse Oximetry 93 12/03/17 15:18 Height/Weight/BMI: Height 1.57 m Weight 58.5 kg Body Mass Index 23.5 - Constitutional Present: no acute distress, well nourished, well developed - Routine HEENT Exam Eye: Present: EOMI ENT: Present: mucous membranes moist, dentition normal - Routine Respiratory Exam Present: CTA bilaterally. Absent: wheezes - Routine Cardiovascular Exam Present: RRR, S1, S2. Absent: murmur - Routine Abdominal Exam Present: soft, normoactive bowel sounds, non distended. Absent: tenderness - Routine Extremities Exam Present: normal capillary refill - Routine Skin Exam Present: intact, dry, warm - Routine Neurological Exam Present: alert, CN II-XII intact - Routine Lymphatic Exam Lymphatic: Absent: adenopathy - Routine Psychiatric Exam Present: normal affect, cooperative Results - Labs CBC & Chem 7: 12/03/17 04:29 12/03/17 04:29 Assessment and Plan (1) Pneumonia Current visit: Yes Status: Acute (2) Severe sepsis Current visit: Yes Status: Acute Assessment and Plan: Impression Severe sepsis - improved No Septic shock -- elevated lactate at presentation incorrect as run on blood form field that had set and not stored properly Bilateral pneumonia Hypotension - resolved Acute respiratory failure with hypoxia - improved RUDOLPH (POA) - resolved Encephalopathy Thrush Stage IV CKD Hyperkalemia- POA Hypernatremia (Not POA) Schizophrenia Organic brain syndrome 12/03 Today is day #7 of cefepime for antimicrobial coverage. White count was slightly up today to 11.3 Hypernatremia continues to improve slowly. Overall, feels encouraged that mental status continues to improve and she is much more alert. Creatinine stable at 1.3 - Physician Narrative Physician: Goldie Nur MD Narrative: Date: 12/03/17 Time: 1715 Ms. Tse was seen earlier in the day by me. She was sitting up in the chair. She was holding the body wipes and handed them to me requesting me to open it give her one which I did. She didn't actually verbalize this but she did motion to me that's what she wanted. She is smiling and happy. She did not talk to me but apparently talk to the nurse practitioner later in the day. She shook her head no to my questions of feeling short of breath, nausea or vomiting, abdominal pain. Nursing did report that she actually said herself some today. I think we may be approaching baseline on her. PE: Gen: alert. NAD Skin: warm and dry HEENT: NC/AT PERRL, EOMI, Sclera, lids and conjunctiva wnl, MMM, OP clear Neck: supple. No JVD, Carotids 2+ without bruits. Lungs: diminshed, clear, No rales, rhonchi, wheezes. CV: regular. No murmur, rub or gallop Abd: soft. NT/ND, +BS MS: No edema. Good strength and ROM. Neuro: Difficult to test Psy: cooperative and pleasant. The patient was independently interviewed and examined by me. She has markedly improved. She is on room air. Her white blood count did creep up a little today at 11.3 area we will repeat a chest x-ray in the morning. I have reviewed her labs, notes and imaging. The plan was formulated in conjunction with the nurse practitioner and I agree with as stated above. She could very likely be getting close to going back to [place] in the next day or 2. Hospital Course Summary Disclaimer: The visit summary below is not to be considered part of the above Progress Note. Hospital Course: 11/26/17 Admit to CCU Patient is admitted as an inpatient under care of Dr. Nur to the ICU for septic shock secondary to bilateral pneumonia, leukocytosis. She was given IV fluid resuscitation. 30 mL/kilogram while in the emergency room. Unfortunately, she did continue to be hypotensive with a map less than 65. Patient was started on norepinephrine drip at 5mcg/min. Continue normal saline at 250 ML per hour. Will need to monitor for evidence of fluid overload. We will repeat venous lactate, and chemistry panel at 1630 as per sepsis protocol. Patient was given IV Levaquin and cefepime while in the emergency room. These medications will need to be renally dosed given acute renal injury. Will also add pharmacy consult for vancomycin for triple antibiotic coverage given severe sepsis. qSOFA score- 3/3 , revealing high risk of poor outcome secondary to sepsis. Order placed for PICC line insertion for longer-term vascular access. Due to severity of illness. DuoNeb breathing treatments 4 times a day and Pulmicort twice a day. Continue with oxygen therapy to maintain adequate saturations. SCDs to bilateral lower extremity for DVT prophylaxis. At admission oral home medications will be placed on hold given decreased level of alertness. Once mentation improves. Will likely need speech therapy consultation to evaluate safety of swallow. I did speak with patient's guardian, Jasmin Kemi. She does verify the patient's is a full code status. At time of discharge medical care will return to primary care provider, Uri. 11/27/17 More awake and alert. Moving more. Attempting to communicate. BP showing improvement - weaned off Norepinephrine. Breathing shallow/rapid but unlabored. Saturations maintained on 8L. Creatine with decrease to 2.4. Urine output increasing. Continue cefepime, levofloxacin, and vancomycin for antimicrobial coverage. Casiano IVF to 1/2NS at 100cc/hr as serum sodium increased to 149. Monitor BP off norepinephrine - chronic antihypertensives on hold secondary to sepsis. Hold on oral intake until more awake and alert. Will need speech evaluation prior to initiation of oral intake. Continue DuoNeb breathing treatments 4 times a day and Pulmicort twice a day. Wean O2 as able, maintaining saturations above 90%. 11/28/17 Opens eyes; feels thirsty - wants drink of water. Breathing shallow/rapid. Needing 7L to maintain saturations. Blood pressures in 150 to 160. WBC decreased to 12.4. Sodium increased to 149. Creatinine decreased 2.2. Continue cefepime, levofloxacin, and vancomycin for antimicrobial coverage. Change IVF to D5W at 50cc/hr as serum sodium still elevated at 149. BP elevated - will continue to hold chronic antihypertensives due to resolving sepsis/RUDOLPH. Hold on oral intake until more awake and alert. Speech consult to clear swallow prior to oral intake. Continue DuoNeb breathing treatments 4 times a day and Pulmicort twice a day. Wean O2 as able, maintaining saturations above 90%. Will transfer to medical floor for continuation of care. 11/29/17 With WBC improving can continue cefepime but can stop levofloxacin and vancomycin. Increase IVF of D5W to 75cc/hr as serum sodium elevated at 154. BP elevated - will continue to hold chronic antihypertensives due to resolving sepsis. Speech consult to clear swallow and help improve oral intake. Will consult PT/OT to help improve functional status. Could restart Remeron, Dilantin, and Senna. Will hold Seroquel due to somnolence and lisinopril due to resolving RUDOLPH. 11/30/17 Continue cefepime for antimicrobial coverage. WBC normalized at 8.5. Increase IVF of D5W to 100cc/hr; serum sodium with slight decrease to 152. Can restart metoprolol and amlodipine for BP - hold lisinopril due to resolving RUDOLPH. Speech recommending barium swallow testing. PT/OT to help improve functional status. Continue to hold Seroquel due to somnolence and lisinopril due to resolving RUDOLPH. 12/01/17 More awake and alert, but follow commands intermittently and oral drive decreased/variable. Seroquel remains on hold (not restarted). Continue cefepime for antimicrobial coverage. WBC normalized at 8.5. Continue IVF of D5W to 100cc/hr to help with serum sodium and to maintain hydration as oral drive variable. Restart hydralazine as BP with elevation. Renal status stable. Lisinopril not restarted due to resolving RUDOLPH. Continue with PT/OT/Speech to improve functional status. Continue to hold Seroquel due to somnolence and lisinopril due to resolving RUDOLPH. 12/02/17 Today is day #6 of cefepime for antimicrobial coverage. Hypernatremia is slowly improving on D5W IV fluids. Continue to work with speech regarding swallow. Did tolerate PO pudding with nursing staff [employer] Level Marketing Representative is improving- Lisinopril remains on hold given RUDOLPH Encourage work with PT/OT for strengthening. Prior to hospitalization he was ambulating independently Recheck CMP and CBC to follow blood counts, renal function and electrolytes 12/03 Today is day #7 of cefepime for antimicrobial coverage. White count was slightly up today to 11.3 Hypernatremia continues to improve slowly. Overall, feels encouraged that mental status continues to improve and she is much more alert. Creatinine stable at 1.3
[2017-12-03] MEDS: MIRTAZAPINE 15 MG TABLET PO SCH (20:06)
[2017-12-04] MEDS: D5W 1,000 ML IV SCH ×3 (03:14→16:57)
[2017-12-04] MEDS: ALBUTEROL/IPRATROPIUM 2.5mg-0.5mg/3ml NEB AEROSOL SCH ×4 (06:59→19:47)
[2017-12-04] MEDS: BUDESONIDE INH.SOLN 0.5mg/2ml NEB AEROSOL SCH ×2 (06:59→19:47)
[2017-12-04] MEDS: SENNOSIDES 8.6 MG TABLET PO SCH ×2 (09:04→20:29)
[2017-12-04] MEDS: ClonazePAM 0.5 MG TABLET PO SCH ×2 (09:04→20:29)
[2017-12-04] MEDS: AMLODIPINE 10 MG TABLET PO SCH (09:04)
[2017-12-04] MEDS: PHENYTOIN 100 MG CAPSULE PO SCH ×3 (09:04→16:32)
[2017-12-04] MEDS: HYDRALAZINE 25 MG TABLET PO SCH ×3 (09:04→20:28)
[2017-12-04] MEDS: MULTI-VITAMIN + MINERAL TABLET PO SCH (09:04)
[2017-12-04] MEDS: NYSTATIN 500,000 units/5 ml ORAL LIQUID PO SCH ×4 (09:04→20:30)
[2017-12-04] MEDS: CEFEPIME 1 GM in NS 100 ML IV SCH (12:19)
--- NOTE | 2017-12-04 14:09 | Progress Note ---
- Date 12/04/17 Subjective: Hillary is a 67 yr old who resides at [facility] in [place]. She was seen early on 11/26/17 in the ER during [facility] downtime and record is unavailable at time of admission. It was reported at that time that patient was hypotensive and hypoxic. ER physician reports RA saturations were 93-94%, BP 130's systolic. She was evaluated and reported to be medically stable. She was discharged back to [facility]. At 0530 outpatient labs done by PCP Dr Grewal revealed leukocytosis, white count was elevated at 18.1. The hemoglobin was 8.8 , neutrophils 86, with 8% bands. Potassium was found to be elevated, renal function also elevated. Given these findings. Patient was returned to the emergency room for another acute evaluation. Patient returned to the emergency room at noon. On arrival, she was found to have a fever of 100.5, pulse rate 97, blood pressure low at 86/54. Patient was noted to be obtunded with altered mentation. Laboratory studies were repeated. She continued to have leukocytosis with a white count of 15.6, bands were up to 9 with 88% neutrophils. Chemistry panel was also repeated. A chest x-ray revealed lower lobe (R>L) pneumonia or aspiration. Patient was given cefepime and Levaquin IV. She was also given IV fluid bolus, 30 ML per kilo as per sepsis protocol. Despite fluid resuscitation. Patient continued to be hypotensive with systolic blood pressures in the 70s and 80s. At that time it was felt that patient required norepinephrine drip to maintain adequate blood pressure. Patient was seen while still in the emergency room for initial evaluation. She will briefly open her eyes however, is unresponsive and nonverbal. Was able to speak with patient's guardian, Jasmin Mcmullen. She does verify that patient is a full code. She is also able to verify patients baseline. She can normally ambulate with a walker. She does speak, however, is generally mumbled. She believes that she works for the [employer]. Outpatient laboratory study from 11/08/17 did reveal a right ear culture positive for Streptococcus pneumoniae. It is reported that patient was previously treated for this infection. The patient improved and was able to be weaned off the norepinephrine. Her oxygen requirements slowly went down. Her creatinine slowly improved. She was transferred out of the ICU on 11/28/2017. Continued on aggressive respiratory therapy. She continued on IV antibiotics. By 11/29/2017 she was on room air. She underwent a barium swallow on 11/30/2017 which did not show any evidence of aspiration. Over the next couple of days she was eating better, much more awake and interactive and only requiring one assist. She was felt to be nearing baseline. When seen by me this morning, she is currently being fed breakfast. She smiling and interactive but still nonverbal. The mid-level yesterday reported that she did actually speak to her but I have never been that fortunate. Objective Vital signs: Temperature 97.6 F 12/04/17 09:00 Pulse Rate 103 H 12/04/17 09:00 Respiratory Rate 18 12/04/17 10:58 Blood Pressure 141/76 H 12/04/17 09:00 Pulse Oximetry 92 12/04/17 10:58 Height/Weight/BMI: Height 1.57 m Weight 57 kg Body Mass Index 23.5 Comments: Gen: alert. NAD Skin: warm and dry HEENT: NC/AT PERRL, EOMI, Sclera, lids and conjunctiva wnl, MMM, OP clear Neck: supple. No JVD, Carotids 2+ without bruits. Lungs: diminshed, clear, No rales, rhonchi, wheezes. CV: regular. No murmur, rub or gallop Abd: soft. NT/ND, +BS MS: No edema. Good strength and ROM. Neuro: Difficult to test Psy: cooperative and pleasant. Results - Labs CBC & Chem 7: 12/04/17 05:18 12/04/17 05:18 Assessment and Plan (1) Pneumonia Current visit: Yes Status: Acute (2) Severe sepsis Current visit: Yes Status: Acute Assessment and Plan: Impression/Plan: Severe sepsis - improved No Septic shock -- elevated lactate at presentation incorrect as run on blood form field that had set and not stored properly Bilateral pneumonia -Today's CXR appears stable, official read pending at present -On Cefepime day 8 -WBC normalized (again) Hypotension -resolved HTN -On Amlodipine, metoprolol, hydralazine -Previously on lisinpril but with her chronic mental status and unreliable po intake, I would not resume this due to her presentation of RUDOLPH Acute respiratory failure with hypoxia -Resolved. RUDOLPH (POA) on CKD stage IV -resolved -Likely back to baseline Encephalopathy -Acute on chronic -Likely back to baseline Thrush -Resolved. Hyperkalemia- POA -Resolved Hypernatremia (Not POA) -Resolved -On D5W, will decrease this and encourage po intake Schizophrenia and Organic brain syndrome -Klonopin, Haldol, lorazepam, Remeron, Dilantin, Prophylaxis -SCDs I think she can probably go to SNU on Wednesday - Physician Narrative Narrative: Date: 12/04/17 Time: 1358 Hospital Course Summary Disclaimer: The visit summary below is not to be considered part of the above Progress Note. Hospital Course: 11/26/17 Admit to CCU Patient is admitted as an inpatient under care of Dr. Nur to the ICU for septic shock secondary to bilateral pneumonia, leukocytosis. She was given IV fluid resuscitation. 30 mL/kilogram while in the emergency room. Unfortunately, she did continue to be hypotensive with a map less than 65. Patient was started on norepinephrine drip at 5mcg/min. Continue normal saline at 250 ML per hour. Will need to monitor for evidence of fluid overload. We will repeat venous lactate, and chemistry panel at 1630 as per sepsis protocol. Patient was given IV Levaquin and cefepime while in the emergency room. These medications will need to be renally dosed given acute renal injury. Will also add pharmacy consult for vancomycin for triple antibiotic coverage given severe sepsis. qSOFA score- 3/3 , revealing high risk of poor outcome secondary to sepsis. Order placed for PICC line insertion for longer-term vascular access. Due to severity of illness. DuoNeb breathing treatments 4 times a day and Pulmicort twice a day. Continue with oxygen therapy to maintain adequate saturations. SCDs to bilateral lower extremity for DVT prophylaxis. At admission oral home medications will be placed on hold given decreased level of alertness. Once mentation improves. Will likely need speech therapy consultation to evaluate safety of swallow. I did speak with patient's guardian, Jasmin Mcmullen. She does verify the patient's is a full code status. At time of discharge medical care will return to primary care provider, Uri. 11/27/17 More awake and alert. Moving more. Attempting to communicate. BP showing improvement - weaned off Norepinephrine. Breathing shallow/rapid but unlabored. Saturations maintained on 8L. Creatine with decrease to 2.4. Urine output increasing. Continue cefepime, levofloxacin, and vancomycin for antimicrobial coverage. Casiano IVF to 1/2NS at 100cc/hr as serum sodium increased to 149. Monitor BP off norepinephrine - chronic antihypertensives on hold secondary to sepsis. Hold on oral intake until more awake and alert. Will need speech evaluation prior to initiation of oral intake. Continue DuoNeb breathing treatments 4 times a day and Pulmicort twice a day. Wean O2 as able, maintaining saturations above 90%. 11/28/17 Opens eyes; feels thirsty - wants drink of water. Breathing shallow/rapid. Needing 7L to maintain saturations. Blood pressures in 150 to 160. WBC decreased to 12.4. Sodium increased to 149. Creatinine decreased 2.2. Continue cefepime, levofloxacin, and vancomycin for antimicrobial coverage. Change IVF to D5W at 50cc/hr as serum sodium still elevated at 149. BP elevated - will continue to hold chronic antihypertensives due to resolving sepsis/RUDOLPH. Hold on oral intake until more awake and alert. Speech consult to clear swallow prior to oral intake. Continue DuoNeb breathing treatments 4 times a day and Pulmicort twice a day. Wean O2 as able, maintaining saturations above 90%. Will transfer to medical floor for continuation of care. 11/29/17 With WBC improving can continue cefepime but can stop levofloxacin and vancomycin. Increase IVF of D5W to 75cc/hr as serum sodium elevated at 154. BP elevated - will continue to hold chronic antihypertensives due to resolving sepsis. Speech consult to clear swallow and help improve oral intake. Will consult PT/OT to help improve functional status. Could restart Remeron, Dilantin, and Senna. Will hold Seroquel due to somnolence and lisinopril due to resolving RUDOLPH. 11/30/17 Continue cefepime for antimicrobial coverage. WBC normalized at 8.5. Increase IVF of D5W to 100cc/hr; serum sodium with slight decrease to 152. Can restart metoprolol and amlodipine for BP - hold lisinopril due to resolving RUDOLPH. Speech recommending barium swallow testing. PT/OT to help improve functional status. Continue to hold Seroquel due to somnolence and lisinopril due to resolving RUDOLPH. 12/01/17 More awake and alert, but follow commands intermittently and oral drive decreased/variable. Seroquel remains on hold (not restarted). Continue cefepime for antimicrobial coverage. WBC normalized at 8.5. Continue IVF of D5W to 100cc/hr to help with serum sodium and to maintain hydration as oral drive variable. Restart hydralazine as BP with elevation. Renal status stable. Lisinopril not restarted due to resolving RUDOLPH. Continue with PT/OT/Speech to improve functional status. Continue to hold Seroquel due to somnolence and lisinopril due to resolving RUDOLPH. 12/02/17 Today is day #6 of cefepime for antimicrobial coverage. Hypernatremia is slowly improving on D5W IV fluids. Continue to work with speech regarding swallow. Did tolerate PO pudding with nursing staff Continuous Improvement Intern is improving- Lisinopril remains on hold given RUDOLPH Encourage work with PT/OT for strengthening. Prior to hospitalization he was ambulating independently Recheck CMP and CBC to follow blood counts, renal function and electrolytes 12/03 Today is day #7 of cefepime for antimicrobial coverage. White count was slightly up today to 11.3 Hypernatremia continues to improve slowly. Overall, feels encouraged that mental status continues to improve and she is much more alert. Creatinine stable at 1.3
[2017-12-04] MEDS: MIRTAZAPINE 15 MG TABLET PO SCH (20:27)
[2017-12-05] MEDS: SALINE FLUSH 10ml SYRINGE IV PRN (03:50)
[2017-12-05] MEDS: BUDESONIDE INH.SOLN 0.5mg/2ml NEB AEROSOL SCH ×2 (08:00→19:30)
[2017-12-05] MEDS: ALBUTEROL/IPRATROPIUM 2.5mg-0.5mg/3ml NEB AEROSOL SCH ×4 (08:00→19:30)
[2017-12-05] MEDS: MULTI-VITAMIN + MINERAL TABLET PO SCH (08:28)
[2017-12-05] MEDS: ClonazePAM 0.5 MG TABLET PO SCH ×2 (08:28→20:01)
[2017-12-05] MEDS: PHENYTOIN 100 MG CAPSULE PO SCH ×3 (08:28→17:22)
[2017-12-05] MEDS: AMLODIPINE 10 MG TABLET PO SCH (08:28)
[2017-12-05] MEDS: SENNOSIDES 8.6 MG TABLET PO SCH ×2 (08:28→20:01)
[2017-12-05] MEDS: NYSTATIN 500,000 units/5 ml ORAL LIQUID PO SCH ×4 (08:28→20:02)
[2017-12-05] MEDS: HYDRALAZINE 25 MG TABLET PO SCH ×3 (08:28→20:01)
--- NOTE | 2017-12-05 10:09 | XRay Report ---
Indication: bilateral pna PROCEDURE: XR chest 1V: Encounter: Initial Comparison: November 29, 2017 Findings: Left PICC line in stable position. Improving aeration of the lower lobes. No new or worsening airspace disease. No pneumothorax. Small effusions. Heart size and mediastinal contours are stable. Pulmonary vascular congestion has improved. Impression: Improving pneumonia. .
[2017-12-05] MEDS: D5W 1,000 ML IV SCH ×2 (11:16→13:33)
[2017-12-05] MEDS: CEFEPIME 1 GM in NS 100 ML IV SCH (12:02)
--- NOTE | 2017-12-05 14:27 | Progress Note ---
- Date 12/05/17 Subjective: Hillary is a 67 yr old who resides at [facility] in [place]. She was seen early on 11/26/17 in the ER during [facility] downtime and record is unavailable at time of admission. It was reported at that time that patient was hypotensive and hypoxic. ER physician reports RA saturations were 93-94%, BP 130's systolic. She was evaluated and reported to be medically stable. She was discharged back to [facility]. At 0530 outpatient labs done by PCP Dr Grewal revealed leukocytosis, white count was elevated at 18.1. The hemoglobin was 8.8 , neutrophils 86, with 8% bands. Potassium was found to be elevated, renal function also elevated. Given these findings. Patient was returned to the emergency room for another acute evaluation. Patient returned to the emergency room at noon. On arrival, she was found to have a fever of 100.5, pulse rate 97, blood pressure low at 86/54. Patient was noted to be obtunded with altered mentation. Laboratory studies were repeated. She continued to have leukocytosis with a white count of 15.6, bands were up to 9 with 88% neutrophils. Chemistry panel was also repeated. A chest x-ray revealed lower lobe (R>L) pneumonia or aspiration. Patient was given cefepime and Levaquin IV. She was also given IV fluid bolus, 30 ML per kilo as per sepsis protocol. Despite fluid resuscitation. Patient continued to be hypotensive with systolic blood pressures in the 70s and 80s. At that time it was felt that patient required norepinephrine drip to maintain adequate blood pressure. Patient was seen while still in the emergency room for initial evaluation. She will briefly open her eyes however, is unresponsive and nonverbal. Was able to speak with patient's guardian, Jasmin Mcmullen. She does verify that patient is a full code. She is also able to verify patients baseline. She can normally ambulate with a walker. She does speak, however, is generally mumbled. She believes that she works for the [employer]. Outpatient laboratory study from 11/08/17 did reveal a right ear culture positive for Streptococcus pneumoniae. It is reported that patient was previously treated for this infection. The patient improved and was able to be weaned off the norepinephrine. Her oxygen requirements slowly went down. Her creatinine slowly improved. She was transferred out of the ICU on 11/28/2017. Continued on aggressive respiratory therapy. She continued on IV antibiotics. By 11/29/2017 she was on room air. She underwent a barium swallow on 11/30/2017 which did not show any evidence of aspiration. Over the next couple of days she was eating better, much more awake and interactive and only requiring one assist. She was felt to be nearing baseline. When seen by me this morning, she is up in the chair smiling. She continues to be nonverbal for me. Review of systems and unobtainable since she won't speak to me. Objective Vital signs: Temperature 97.2 F 12/05/17 08:00 Pulse Rate 101 H 12/05/17 08:00 Respiratory Rate 24 12/05/17 11:09 Blood Pressure 158/88 H 12/05/17 08:00 Pulse Oximetry 91 12/05/17 08:01 Height/Weight/BMI: Height 1.57 m Weight 56.5 kg Body Mass Index 23.5 Comments: Gen: alert. NAD Skin: warm and dry HEENT: NC/AT PERRL, EOMI, Sclera, lids and conjunctiva wnl, MMM, OP clear Neck: supple. No JVD, Carotids 2+ without bruits. Lungs: diminshed, clear, No rales, rhonchi, wheezes. CV: regular. No murmur, rub or gallop Abd: soft. NT/ND, +BS MS: No edema. Good strength and ROM. Neuro: Difficult to test Psy: cooperative and appears happy. West in place Results - Labs CBC & Chem 7: 12/05/17 03:48 12/05/17 03:48 Assessment and Plan (1) Pneumonia Current visit: Yes Status: Acute (2) Severe sepsis Current visit: Yes Status: Acute Assessment and Plan: Impression/Plan: Severe sepsis - improved No Septic shock -- elevated lactate at presentation incorrect as run on blood form field that had set and not stored properly Bilateral pneumonia -Today's CXR appears stable, official read pending at present -On Cefepime day 9 -WBC normalized (again) Hypotension -resolved HTN -On Amlodipine, metoprolol, hydralazine -Previously on lisinpril but with her chronic mental status and unreliable po intake, I would not resume this due to her presentation of RUDOLPH Acute respiratory failure with hypoxia -Resolved. RUDOLPH (POA) on CKD stage IV -resolved -Likely back to baseline -DC [place] Encephalopathy -Acute on chronic -Likely back to baseline Thrush -Resolved. Hyperkalemia- POA -Resolved Hypernatremia (Not POA) -Resolved -On D5W-DC -EP labs in a.m. Schizophrenia and Organic brain syndrome -Klonopin, Haldol, lorazepam, Remeron, Dilantin, Prophylaxis -SCDs I think she can probably go to SNU on Wednesday - Physician Narrative Narrative: Date: 12/05/17 Time: 1424 Hospital Course Summary Disclaimer: The visit summary below is not to be considered part of the above Progress Note. Hospital Course: 11/26/17 Admit to CCU Patient is admitted as an inpatient under care of Dr. Nur to the ICU for septic shock secondary to bilateral pneumonia, leukocytosis. She was given IV fluid resuscitation. 30 mL/kilogram while in the emergency room. Unfortunately, she did continue to be hypotensive with a map less than 65. Patient was started on norepinephrine drip at 5mcg/min. Continue normal saline at 250 ML per hour. Will need to monitor for evidence of fluid overload. We will repeat venous lactate, and chemistry panel at 1630 as per sepsis protocol. Patient was given IV Levaquin and cefepime while in the emergency room. These medications will need to be renally dosed given acute renal injury. Will also add pharmacy consult for vancomycin for triple antibiotic coverage given severe sepsis. qSOFA score- 3/3 , revealing high risk of poor outcome secondary to sepsis. Order placed for PICC line insertion for longer-term vascular access. Due to severity of illness. DuoNeb breathing treatments 4 times a day and Pulmicort twice a day. Continue with oxygen therapy to maintain adequate saturations. SCDs to bilateral lower extremity for DVT prophylaxis. At admission oral home medications will be placed on hold given decreased level of alertness. Once mentation improves. Will likely need speech therapy consultation to evaluate safety of swallow. I did speak with patient's guardian, Jasmin Mcmullen. She does verify the patient's is a full code status. At time of discharge medical care will return to primary care provider, Uri. 11/27/17 More awake and alert. Moving more. Attempting to communicate. BP showing improvement - weaned off Norepinephrine. Breathing shallow/rapid but unlabored. Saturations maintained on 8L. Creatine with decrease to 2.4. Urine output increasing. Continue cefepime, levofloxacin, and vancomycin for antimicrobial coverage. Casiano IVF to 1/2NS at 100cc/hr as serum sodium increased to 149. Monitor BP off norepinephrine - chronic antihypertensives on hold secondary to sepsis. Hold on oral intake until more awake and alert. Will need speech evaluation prior to initiation of oral intake. Continue DuoNeb breathing treatments 4 times a day and Pulmicort twice a day. Wean O2 as able, maintaining saturations above 90%. 11/28/17 Opens eyes; feels thirsty - wants drink of water. Breathing shallow/rapid. Needing 7L to maintain saturations. Blood pressures in 150 to 160. WBC decreased to 12.4. Sodium increased to 149. Creatinine decreased 2.2. Continue cefepime, levofloxacin, and vancomycin for antimicrobial coverage. Change IVF to D5W at 50cc/hr as serum sodium still elevated at 149. BP elevated - will continue to hold chronic antihypertensives due to resolving sepsis/RUDOLPH. Hold on oral intake until more awake and alert. Speech consult to clear swallow prior to oral intake. Continue DuoNeb breathing treatments 4 times a day and Pulmicort twice a day. Wean O2 as able, maintaining saturations above 90%. Will transfer to medical floor for continuation of care. 11/29/17 With WBC improving can continue cefepime but can stop levofloxacin and vancomycin. Increase IVF of D5W to 75cc/hr as serum sodium elevated at 154. BP elevated - will continue to hold chronic antihypertensives due to resolving sepsis. Speech consult to clear swallow and help improve oral intake. Will consult PT/OT to help improve functional status. Could restart Remeron, Dilantin, and Senna. Will hold Seroquel due to somnolence and lisinopril due to resolving RUDOLPH. 11/30/17 Continue cefepime for antimicrobial coverage. WBC normalized at 8.5. Increase IVF of D5W to 100cc/hr; serum sodium with slight decrease to 152. Can restart metoprolol and amlodipine for BP - hold lisinopril due to resolving RUDOLPH. Speech recommending barium swallow testing. PT/OT to help improve functional status. Continue to hold Seroquel due to somnolence and lisinopril due to resolving RUDOLPH. 12/01/17 More awake and alert, but follow commands intermittently and oral drive decreased/variable. Seroquel remains on hold (not restarted). Continue cefepime for antimicrobial coverage. WBC normalized at 8.5. Continue IVF of D5W to 100cc/hr to help with serum sodium and to maintain hydration as oral drive variable. Restart hydralazine as BP with elevation. Renal status stable. Lisinopril not restarted due to resolving RUDOLPH. Continue with PT/OT/Speech to improve functional status. Continue to hold Seroquel due to somnolence and lisinopril due to resolving RUDOLPH. 12/02/17 Today is day #6 of cefepime for antimicrobial coverage. Hypernatremia is slowly improving on D5W IV fluids. Continue to work with speech regarding swallow. Did tolerate PO pudding with nursing staff [employer] is improving- Lisinopril remains on hold given RUDOLPH Encourage work with PT/OT for strengthening. Prior to hospitalization he was ambulating independently Recheck CMP and CBC to follow blood counts, renal function and electrolytes 12/03 Today is day #7 of cefepime for antimicrobial coverage. White count was slightly up today to 11.3 Hypernatremia continues to improve slowly. Overall, feels encouraged that mental status continues to improve and she is much more alert. Creatinine stable at 1.3
[2017-12-05] MEDS: MIRTAZAPINE 15 MG TABLET PO SCH (20:01)
[2017-12-06] MEDS: SALINE FLUSH 10ml SYRINGE IV PRN (04:34)
[2017-12-06] MEDS: D5W 1,000 ML IV SCH ×2 (05:35→10:57)
[2017-12-06] MEDS: ALBUTEROL/IPRATROPIUM 2.5mg-0.5mg/3ml NEB AEROSOL SCH ×2 (07:21→11:35)
[2017-12-06] MEDS: BUDESONIDE INH.SOLN 0.5mg/2ml NEB AEROSOL SCH (07:21)
[2017-12-06 07:22] VITALS: BP 137/92; PULSE 90; TEMP 96.4
[2017-12-06] MEDS: PHENYTOIN 100 MG CAPSULE PO SCH ×2 (07:53→12:21)
[2017-12-06] MEDS: NYSTATIN 500,000 units/5 ml ORAL LIQUID PO SCH ×2 (07:59→12:21)
[2017-12-06] MEDS: MULTI-VITAMIN + MINERAL TABLET PO SCH (07:59)
[2017-12-06] MEDS: HYDRALAZINE 25 MG TABLET PO SCH (07:59)
[2017-12-06] MEDS: AMLODIPINE 10 MG TABLET PO SCH (07:59)
[2017-12-06] MEDS: ClonazePAM 0.5 MG TABLET PO SCH (07:59)
[2017-12-06] MEDS: SENNOSIDES 8.6 MG TABLET PO SCH (07:59)
--- NOTE | 2017-12-06 10:38 | Progress Note ---
- Date 12/06/17 Subjective: F/U: Severe sepsis, pneumonia, Acute respiratory failure, RUDOLPH Resting at my visit. Has been up in chair and eating well. Breathing comfortably on RA. Vitals stable. WBC normal. Sodium with increase to 147. Objective Vital signs: Temperature 96.4 F L 12/06/17 07:00 Pulse Rate 90 12/06/17 07:00 Respiratory Rate 16 12/06/17 07:21 Blood Pressure 137/92 H 12/06/17 07:00 Pulse Oximetry 92 12/06/17 07:21 Height/Weight/BMI: Height 1.57 m Weight 56.6 kg Body Mass Index 23.5 - Constitutional Present: no acute distress, well nourished, well developed, average body habitus - Routine HEENT Exam Head: Present: normocephalic, atraumatic Eye: Present: EOMI, PERRL - Routine Respiratory Exam Present: CTA bilaterally. Absent: rales, respiratory distress, rhonchi, stridor , wheezes, crackles - Routine Cardiovascular Exam Present: RRR, no murmur - Routine Abdominal Exam Present: soft, normoactive bowel sounds, non distended, non tender - Routine Extremities Exam Present: no edema, pulses intact. Absent: cyanosis, clubbing - Routine Musculoskeletal Exam Musculoskeletal: Present: no clubbing or cyanosis - Routine Skin Exam Present: dry, warm - Routine Psychiatric Exam Absent: anxious, agitated Results - Labs CBC & Chem 7: 12/06/17 04:33 12/06/17 04:33 Assessment and Plan (1) Pneumonia Current visit: Yes Status: Acute (2) Severe sepsis Current visit: Yes Status: Acute Assessment and Plan: Impression Severe sepsis - improved No Septic shock -- elevated lactate at presentation incorrect as run on blood form field that had set and not stored properly Bilateral pneumonia Hypotension -resolved HTN Acute respiratory failure with hypoxia - Resolved. RUDOLPH (POA) on CKD stage IV - resolved Encephalopathy - Acute on chronic Thrush - Resolved. Hyperkalemia- POA -Resolved Hypernatremia (Not POA) Schizophrenia and Organic brain syndrome Plan Oral drive improved. WBC normalized. Respiratory status stable. Will discharge to [place] for continuation of care. Can stop antibiotic therapy as has had 10 days of treatment. Stop lisinopril due to CKD. Will stop Seroquel due to variable somnolence and not seeing agitation. Will need continued outpatient psych monitoring for medication adjustments. F/U with Dr Grewal in 1 week. See orders for details. Case discussed with CM. Time spent with patient care and discharge greater than 30 minutes. DVT Prophylaxis: SCD's Resuscitation Status: Do Not Resuscitate - Physician Narrative Physician: Joesph Hayden MD Narrative: Date: 12/06/17 Time: 1032 Hospital Course Summary Disclaimer: The visit summary below is not to be considered part of the above Progress Note. Hospital Course: 11/26/17 Admit to CCU Patient is admitted as an inpatient under care of Dr. Nur to the ICU for septic shock secondary to bilateral pneumonia, leukocytosis. She was given IV fluid resuscitation. 30 mL/kilogram while in the emergency room. Unfortunately, she did continue to be hypotensive with a map less than 65. Patient was started on norepinephrine drip at 5mcg/min. Continue normal saline at 250 ML per hour. Will need to monitor for evidence of fluid overload. We will repeat venous lactate, and chemistry panel at 1630 as per sepsis protocol. Patient was given IV Levaquin and cefepime while in the emergency room. These medications will need to be renally dosed given acute renal injury. Will also add pharmacy consult for vancomycin for triple antibiotic coverage given severe sepsis. qSOFA score- 3/3 , revealing high risk of poor outcome secondary to sepsis. Order placed for PICC line insertion for longer-term vascular access. Due to severity of illness. DuoNeb breathing treatments 4 times a day and Pulmicort twice a day. Continue with oxygen therapy to maintain adequate saturations. SCDs to bilateral lower extremity for DVT prophylaxis. At admission oral home medications will be placed on hold given decreased level of alertness. Once mentation improves. Will likely need speech therapy consultation to evaluate safety of swallow. I did speak with patient's guardian, Jasmin Mcmullen. She does verify the patient's is a full code status. At time of discharge medical care will return to primary care provider, Uri. 11/27/17 More awake and alert. Moving more. Attempting to communicate. BP showing improvement - weaned off Norepinephrine. Breathing shallow/rapid but unlabored. Saturations maintained on 8L. Creatine with decrease to 2.4. Urine output increasing. Continue cefepime, levofloxacin, and vancomycin for antimicrobial coverage. Casiano IVF to 1/2NS at 100cc/hr as serum sodium increased to 149. Monitor BP off norepinephrine - chronic antihypertensives on hold secondary to sepsis. Hold on oral intake until more awake and alert. Will need speech evaluation prior to initiation of oral intake. Continue DuoNeb breathing treatments 4 times a day and Pulmicort twice a day. Wean O2 as able, maintaining saturations above 90%. 11/28/17 Opens eyes; feels thirsty - wants drink of water. Breathing shallow/rapid. Needing 7L to maintain saturations. Blood pressures in 150 to 160. WBC decreased to 12.4. Sodium increased to 149. Creatinine decreased 2.2. Continue cefepime, levofloxacin, and vancomycin for antimicrobial coverage. Change IVF to D5W at 50cc/hr as serum sodium still elevated at 149. BP elevated - will continue to hold chronic antihypertensives due to resolving sepsis/RUDOLPH. Hold on oral intake until more awake and alert. Speech consult to clear swallow prior to oral intake. Continue DuoNeb breathing treatments 4 times a day and Pulmicort twice a day. Wean O2 as able, maintaining saturations above 90%. Will transfer to medical floor for continuation of care. 11/29/17 With WBC improving can continue cefepime but can stop levofloxacin and vancomycin. Increase IVF of D5W to 75cc/hr as serum sodium elevated at 154. BP elevated - will continue to hold chronic antihypertensives due to resolving sepsis. Speech consult to clear swallow and help improve oral intake. Will consult PT/OT to help improve functional status. Could restart Remeron, Dilantin, and Senna. Will hold Seroquel due to somnolence and lisinopril due to resolving RUDOLPH. 11/30/17 Continue cefepime for antimicrobial coverage. WBC normalized at 8.5. Increase IVF of D5W to 100cc/hr; serum sodium with slight decrease to 152. Can restart metoprolol and amlodipine for BP - hold lisinopril due to resolving RUDOLPH. Speech recommending barium swallow testing. PT/OT to help improve functional status. Continue to hold Seroquel due to somnolence and lisinopril due to resolving RUDOLPH. 12/01/17 More awake and alert, but follow commands intermittently and oral drive decreased/variable. Seroquel remains on hold (not restarted). Continue cefepime for antimicrobial coverage. WBC normalized at 8.5. Continue IVF of D5W to 100cc/hr to help with serum sodium and to maintain hydration as oral drive variable. Restart hydralazine as BP with elevation. Renal status stable. Lisinopril not restarted due to resolving RUDOLPH. Continue with PT/OT/Speech to improve functional status. Continue to hold Seroquel due to somnolence and lisinopril due to resolving RUDOLPH. 12/02/17 Today is day #6 of cefepime for antimicrobial coverage. Hypernatremia is slowly improving on D5W IV fluids. Continue to work with speech regarding swallow. 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 Prior to hospitalization he was ambulating independently Recheck CMP and CBC to follow blood counts, renal function and electrolytes 12/03/17 Today is day #7 of cefepime for antimicrobial coverage. White count was slightly up today to 11.3 Hypernatremia continues to improve slowly. Overall, feels encouraged that mental status continues to improve and she is much more alert. Creatinine stable at 1.3 12/04/17 On Cefepime day 8 On D5W, will decrease this and encourage po intake 12/05/17 On Cefepime day 9 [place]. D/C D5W and encourage oral intake. 12/06/[address] improved. WBC normalized. Respiratory status stable. Will discharge to [place] for continuation of care. Can stop antibiotic therapy as has had 10 days of treatment. Stop lisinopril due to CKD. Will stop Seroquel due to variable somnolence and not seeing agitation. Will need continued outpatient psych monitoring for medication adjustments. F/U with Dr Grewal in 1 week. See orders for details.
--- NOTE | 2017-12-06 10:52 | Extended Care Facility Orders ---
Admission Orders Admit to:: [facility] Allergies/Adverse Reactions: Allergies polystyrene sulfonate [From Kayexalate] Allergy (Unknown, Verified 11/26/17 12: 42) tuberculin, purified protein deriva [From Tubersol] Allergy (Unknown, Verified 11/26/17 12:42) Admitting Diagnosis: Septic, Bilateral pneumonia Admitting Physician: Joesph Hayden MD Attending Physician: Dr Grewal Code Status: Do Not Resuscitate Anticiapted Length of Stay: greater than 30 days Rehab Potential: fair Rehab Prognosis: fair Diet: Pureed diet with syrup thick liquids. May use Facility Protocol or Standing Orders: Yes May have flu vaccine: Yes [facility] Certification: I certify that SNF services are required to be given on an Inpatient basis because of the patients need for senior living care on a continuing basis for the condition(s) for which he/she received inpatient hospital services prior to his/her transfer to the SNF. SNF inpatient care is necessary for the following reasons Indication for [facility]: Not Applicable - Additional Information In Event of Arrest: Do Not Start CPR Resident is Aware of Diagnosis: No (Organic Brain Syndrome ) Referrals: Carla Grewal MD [Primary Care Provider] - 1 Week (Hospital follow up. ) Additional Orders: F/U with Dr Grewal in 1 week. Continue psychatric care follow up. Encourage oral fluid intake.
--- NOTE | 2017-12-06 11:12 | Discharge Summary ---
Discharge Information Date of admission: 11/26/17 14:01 Anticipated date of discharge: 12/06/17 Attending Physician: Joesph Hayden MD Primary care physician: Carla Grewal MD Consults: None - Discharge Diagnosis (1) Pneumonia Status: Acute (2) Severe sepsis Status: Acute Discharge diagnosis Severe sepsis - improved No Septic shock -- elevated lactate at presentation incorrect as run on blood form field that had set and not stored properly Associated conditions and complications Bilateral pneumonia Hypotension -resolved HTN Acute respiratory failure with hypoxia - Resolved. RUDOLPH (POA) on CKD stage IV - resolved Encephalopathy - Acute on chronic Dysphagia Thrush - Resolved. Hyperkalemia- POA -Resolved Hypernatremia (Not POA) Schizophrenia and Organic brain syndrome - Procedures Procedures: None - Laboratory Labs: 12/06/17 04:33 12/06/17 04:33 - Microbiology Microbiology 11/26/17 12:22 Peripheral/Iv Start Blood Culture - Final No Growth After 5 Days 11/26/17 12:14 Peripheral/Iv Start Blood Culture - Final No Growth After 5 Days - Radiology Radiology: 11/26/17-chest x-ray- Impression: Lower lobe pneumonia or aspiration. 11/26/17-chest x-ray- Impression: 1. New left PICC line tip projects over the right atrium. 2. Worsening airspace consolidation in the right lung. 11/29/17-chest x-ray- Impression: Mild diffuse interstitial edema and both lung [place] versus prominent secondary to expiratory technique. No definite lobar consolidation or pleural effusion. 11/30/17-modified barium swallow reveals no aspiration 12/04/17-chest x-ray- Impression: improving pneumonia - Pathology None History of Present Illness HPI: Hillary is a 67 yr old who resides at [facility] in [place]. She was seen early this morning in the ER during [facility] downtime and record is available at time of admission. It was reported at that time that andrew was hypotensive and hypoxic. ER physician reports room air sats were 93-94%, BP 130's systolic. She was evaluated and reported to be medically stable. She was discharged back yo [facility]. At 0530 outpatient labs done by PCP Dr Uri zepeda. At that time. White count was found to be elevated at 18.1, hemoglobin 8.8, neutrophils 86, with a percent bands. Potassium was found to be elevated, renal function also elevated. Given these findings. Patient was returned to the emergency room for another acute evaluation. Patient returns to the emergency room at approximately noon today. On arrival to [facility]. Patient was found to have a fever of 100.5, pulse rate 97, blood pressure low at 86/54. Patient was noted to be obtunded with altered mentation. Laboratory studies were repeated at this time. She was found to have continued leukocytosis with a white count of 15 him and I'm percent bands with 88% neutrophils. Chemistry panel was also repeated. A chest x-ray did reveal lower lobe pneumonia or aspiration. Patient was given cefepime, Levaquin IV. She was also given IV fluid bolus, 30 ML per kilo as per sepsis protocol. Despite fluid resuscitation. Patient continued to be hypotensive with systolic blood pressures in the 70s and 80s. At that time it was felt that patient required norepinephrine drip to maintain adequate blood pressure. Patient was seen while still in the emergency room for initial evaluation. She will briefly open her eyes however, is unresponsive and nonverbal. Was able to speak with patient's guardian, Jasmin Mcmullen. He does verify that patient is a full code. She is also able to verify patients baseline. She can normally ambulate with a walker. She does speak, however, is generally mumbled. She believes that she works for the [employer]. Outpatient laboratory study from 11/08/17 did reveal a right ear culture positive for Streptococcus pneumoniae. It is reported that patient was previously treated for this infection. Medical history, surgical history is very difficult to be obtained. Patient is unable to give any details. Nursing facility reports they have no records of past surgical history. Has never been hospitalized at [facility] previously. Objective Vital signs: Temperature 96.4 F L 12/06/17 07:00 Pulse Rate 90 12/06/17 07:00 Respiratory Rate 16 12/06/17 07:21 Blood Pressure 137/92 H 12/06/17 07:00 Pulse Oximetry 92 12/06/17 07:21 Height/Weight/BMI: Height 1.57 m Weight 56.6 kg Body Mass Index 23.5 - Constitutional Present: no acute distress, well nourished, well developed - Routine HEENT Exam Eye: Present: EOMI ENT: Present: mucous membranes moist, dentition normal - Routine Respiratory Exam Present: CTA bilaterally. Absent: wheezes - Routine Cardiovascular Exam Present: RRR, S1, S2. Absent: murmur - Routine Abdominal Exam Present: soft, normoactive bowel sounds, non distended. Absent: tenderness - Routine Extremities Exam Present: normal capillary refill - Routine Skin Exam Present: intact, dry, warm - Routine Neurological Exam Present: alert, CN II-XII intact, moving all extremities - Routine Lymphatic Exam Lymphatic: Absent: adenopathy - Routine Psychiatric Exam Present: cooperative Hospital Course This is a general summary of the patient's hospital course. For more details refer to the complete medical record. Hospital course: 11/26/17 Admit to CCU Patient is admitted as an inpatient under care of Dr. Nur to the ICU for septic shock secondary to bilateral pneumonia, leukocytosis. She was given IV fluid resuscitation. 30 mL/kilogram while in the emergency room. Unfortunately, she did continue to be hypotensive with a map less than 65. Patient was started on norepinephrine drip at 5mcg/min. Continue normal saline at 250 ML per hour. Will need to monitor for evidence of fluid overload. We will repeat venous lactate, and chemistry panel at 1630 as per sepsis protocol. Patient was given IV Levaquin and cefepime while in the emergency room. These medications will need to be renally dosed given acute renal injury. Will also add pharmacy consult for vancomycin for triple antibiotic coverage given severe sepsis. qSOFA score- 3/3 , revealing high risk of poor outcome secondary to sepsis. Order placed for PICC line insertion for longer-term vascular access. Due to severity of illness. DuoNeb breathing treatments 4 times a day and Pulmicort twice a day. Continue with oxygen therapy to maintain adequate saturations. SCDs to bilateral lower extremity for DVT prophylaxis. At admission oral home medications will be placed on hold given decreased level of alertness. Once mentation improves. Will likely need speech therapy consultation to evaluate safety of swallow. I did speak with patient's guardian, Jasmin Mcmullen. She does verify the patient's is a full code status. At time of discharge medical care will return to primary care provider, Uri. 11/27/17 More awake and alert. Moving more. Attempting to communicate. BP showing improvement - weaned off Norepinephrine. Breathing shallow/rapid but unlabored. Saturations maintained on 8L. Creatine with decrease to 2.4. Urine output increasing. Continue cefepime, levofloxacin, and vancomycin for antimicrobial coverage. Casiano IVF to 1/2NS at 100cc/hr as serum sodium increased to 149. Monitor BP off norepinephrine - chronic antihypertensives on hold secondary to sepsis. Hold on oral intake until more awake and alert. Will need speech evaluation prior to initiation of oral intake. Continue DuoNeb breathing treatments 4 times a day and Pulmicort twice a day. Wean O2 as able, maintaining saturations above 90%. 11/28/17 Opens eyes; feels thirsty - wants drink of water. Breathing shallow/rapid. Needing 7L to maintain saturations. Blood pressures in 150 to 160. WBC decreased to 12.4. Sodium increased to 149. Creatinine decreased 2.2. Continue cefepime, levofloxacin, and vancomycin for antimicrobial coverage. Change IVF to D5W at 50cc/hr as serum sodium still elevated at 149. BP elevated - will continue to hold chronic antihypertensives due to resolving sepsis/RUDOLPH. Hold on oral intake until more awake and alert. Speech consult to clear swallow prior to oral intake. Continue DuoNeb breathing treatments 4 times a day and Pulmicort twice a day. Wean O2 as able, maintaining saturations above 90%. Will transfer to medical floor for continuation of care. 11/29/17 With WBC improving can continue cefepime but can stop levofloxacin and vancomycin. Increase IVF of D5W to 75cc/hr as serum sodium elevated at 154. BP elevated - will continue to hold chronic antihypertensives due to resolving sepsis. Speech consult to clear swallow and help improve oral intake. Will consult PT/OT to help improve functional status. Could restart Remeron, Dilantin, and Senna. Will hold Seroquel due to somnolence and lisinopril due to resolving RUDOLPH. 11/30/17 Continue cefepime for antimicrobial coverage. WBC normalized at 8.5. Increase IVF of D5W to 100cc/hr; serum sodium with slight decrease to 152. Can restart metoprolol and amlodipine for BP - hold lisinopril due to resolving RUDOLPH. Speech recommending barium swallow testing. PT/OT to help improve functional status. Continue to hold Seroquel due to somnolence and lisinopril due to resolving RUDOLPH. 12/01/17 More awake and alert, but follow commands intermittently and oral drive decreased/variable. Seroquel remains on hold (not restarted). Continue cefepime for antimicrobial coverage. WBC normalized at 8.5. Continue IVF of D5W to 100cc/hr to help with serum sodium and to maintain hydration as oral drive variable. Restart hydralazine as BP with elevation. Renal status stable. Lisinopril not restarted due to resolving RUDOLPH. Continue with PT/OT/Speech to improve functional status. Continue to hold Seroquel due to somnolence and lisinopril due to resolving RUDOLPH. 12/02/17 Today is day #6 of cefepime for antimicrobial coverage. Hypernatremia is slowly improving on D5W IV fluids. Continue to work with speech regarding swallow. 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 Prior to hospitalization he was ambulating independently Recheck CMP and CBC to follow blood counts, renal function and electrolytes 12/03/17 Today is day #7 of cefepime for antimicrobial coverage. White count was slightly up today to 11.3 Hypernatremia continues to improve slowly. Overall, feels encouraged that mental status continues to improve and she is much more alert. Creatinine stable at 1.3 12/04/17 On Cefepime day 8 On D5W, will decrease this and encourage po intake 12/05/17 On Cefepime day 9 [place]. Encourage oral intake. 12/06/[address] improved. WBC normalized. Respiratory status stable. Will discharge to [place] for continuation of care. Can stop antibiotic therapy as has had 10 days of treatment. Stop lisinopril due to CKD. Will stop Seroquel due to variable somnolence and not seeing agitation. Will need continued outpatient psych monitoring for medication adjustments. F/U with Dr Grewal in 1 week. See orders for details. Time spent with patient: discharge greater than 30 minutes Resuscitation Status: Do Not Resuscitate Discharge Plan - Discharge Disposition Discharge Date: 12/06/17 Disposition: 04 To [facility] Home/Facility *Condition: Stable Reason For Visit (Visit label in EMR): Septic shock, Bilateral pnemonia - Discharge Medications *Discharge Medications: New Hydralazine [Apresoline] 25 mg PO TID tab Continue Acetaminophen [Tylenol] 500 mg PO Q4H PRN PRN Reason: Pain /Fever Fleet Phospho-Soda Enema [Fleet Enema] 1 enema RECTALLY DAILY PRN PRN Reason: Constipation Multivitamin [One Daily] 1 each PO DAILY Calcium Carbonate [Calcium] 500 mg PO DAILY Amlodipine [Norvasc] 10 mg PO DAILY Alendronate [Fosamax] 70 mg PO Q7D RisperiDONE LA [RisperDAL Consta] 50 mg IM Q2WKS Sennosides [Senokot] 8.6 mg PO BID Metoprolol Tartrate 50 mg PO BID Mirtazapine [Remeron] 15 mg PO HS Phenytoin Cap [Dilantin 100 mg Cap] 100 mg PO TIDWM Mag Hydrox/Aluminum Hyd/Simeth [Antacid Suspension] 30 ml PO Q4H PRN PRN Reason: Epigastric Distress Milk of Magnesia [Mom] 30 ml PO DAILY PRN PRN Reason: Constipation Ondansetron [Zofran Odt] 4 mg PO Q8HR PRN PRN Reason: Nausea &/Or Vomiting ClonazePAM [Klonopin] 0.5 mg PO BID #15 tab Haloperidol [Haldol] 5 mg PO Q4H PRN #15 tab PRN Reason: Agitation LORazepam [Ativan] 0.5 mg PO DAILY PRN #20 tab PRN Reason: Anxiety Tramadol [Ultram] 50 mg PO TID #20 tab Loratadine [Claritin] 10 mg PO DAILY PRN PRN Reason: Allergy Symptoms Naproxen 500 mg PO BID Bisacodyl Supp [Dulcolax] 10 mg RECTALLY DAILY PRN PRN Reason: Constipation Discontinued Lisinopril [Prinivil] 5 mg PO DAILY Hydralazine [Apresoline] 12.5 mg PO TID Quetiapine [SEROquel] 200 mg PO TID - Discharge Packet/Instructions *Diet: Regular diet with pureed diet *Activity: Activity as tolerated *Pain Management/Treatment: Tylenol as needed for pain *Wound Care: None *Expected Signs/Symptoms: Continued improvement *Notify Physician if: Fever, difficulty breathing or other concerning symptoms *During Business Hours Contact: Contact Dr Grewal *After Business Hours Contact: Page oncall Physician *Pending Lab/Results: No Pending Lab - Referrals/Follow Up *Referrals/Follow Up: Carla Grewal MD [Primary Care Provider] - 1 Week (Hospital follow up. ) - Patient Handouts Patient Handouts: Sepsis (GEN), Pneumonia (GEN) - Dismissal Complete Discharge Instructions are:: Complete Physician Narrative - Narrative Physician: Joesph Hayden MD Attestation Narrative: Date: 12/06/17 Time: 1149 I have independently interviewed and examined patient prior to discharge. See my progress note for details. Reviewed above note and concur. Medically stable for discharge.
[2017-12-06 11:40] VITALS: RESP 20; O2SAT 94
[2017-12-06] MEDS: CEFEPIME 1 GM in NS 100 ML IV SCH (12:21)
[2017-12-06] MEDS ORDERED: NEOMYCIN/POLYMYXIN/BACITRACIN OINT PACKET TP ONE (12:59)
== END 2017-12-06 14:00 | DRG 871 ==
LOC: ED 11:55 → CCU 14:01 → SUATTDRO 14:01 → CCU 15:00 → MED 11-28 13:55
PROVIDERS: ADMIT Internal Medicine Cardiovascular Disease; ATTEND Hospitalist